=== PATIENT | male | born 1940 | race Caucasian/White ===

== ENCOUNTER 2016-05-11 11:25 | Emergency (ER) | payer MEDICARE, BC ==
[~2016-05-11] VITALS: Ht 177.8 cm; Wt 77.3 kg
[~2016-05-11 11:25] MED LIST: CETI-115 PO; CHLO4TAB32 PO; CHOL200047 PO; FISH1CAP2 PO; METO100T5 PO; OMEP40CA52 PO; RIVA20TA PO
[2016-05-11 11:28] VITALS: TEMP 97.7; Ht 177.8 cm; Wt 77.3 kg
--- OUTSIDE RECORDS SUMMARY | 2016-05-11 11:29 | XMS REPORT | Continuity of Care Document ---
Author Author [facility] Organization [facility] Address Unknown Phone Unavailable Support Name Relationship Address Phone KIMBERLY MCCANN DO Caregiver [facility] [address] [place], [place] [id number] JESSICA HACKETT MD Caregiver [address] [place] [address] PJ HUDSON Next Of Kin [address], [place] [address] Insurance Providers Payer Name Policy Number Subscriber Name Relationship Medicare [id number] Sang Hudson Self Blue Cross Select Plan 65 [id number] Sang Hudson 16 Self Problems Medical Problems Problem Onset Date Status Atrial fibrillation Unknown Active Atrial fibrillation Unknown Active Gastroenteritis Unknown Active Gastroenteritis Unknown Active Medications Medication Dose Route Sig Days/Qty Instructions Order Date Discontinued Date Status [Vitamin D] PO 1 WEEKLY 10/16/08 Active Aspirin 81 Mg PO DAILY 06/18/10 Active Calcium Citrate/Vitamin D3 1 Tab PO DAILY 06/18/10 Active Metoprolol Tartrate 25 Mg PO DAILY 90 Days 01/07/14 Active Alprazolam 0.25 Mg PO PRN ANXIETY 04/24/14 Active Omeprazole 1 Cap PO TWICE A DAY 04/24/14 Active Ondansetron 4 Mg PO EVERY 4-6 HOURS For NAUSEA &/OR VOMITING 15 Qty Oral Disintegrating Tablet 04/24/14 Active Social History Social History Problem Response Recorded Date/Time Hx Substance Use No 04/24/2014 4:40pm Hx Alcohol Use No 04/24/2014 4:40pm Tobacco Usage none 01/11/2014 7:38am Query Response Start Date Stop Date Smoking Status Former smoker Hospital Discharge Instructions No hospital discharge instructions. Plan of Care No plan of care. Functional Status Query Response Date Recorded Physical Hygiene Self April 24, 2014 4:40pm Disabilities None April 24, 2014 4:40pm Devices Used None April 24, 2014 4:40pm Dressing Self April 24, 2014 4:40pm Ambulation Self April 24, 2014 4:40pm Diet Self April 24, 2014 4:40pm Mental Status Alert Occasionally Confused Oriented April 24, 2014 4:40pm Disabilities None April 24, 2014 4:40pm Devices Used None April 24, 2014 4:40pm Physical Hygiene Self April 24, 2014 4:40pm Dressing Self April 24, 2014 4:40pm Ambulation Self April 24, 2014 4:40pm Diet Self April 24, 2014 4:40pm Allergies, Adverse Reactions, Alerts Allergen Type Severity Reaction Status Last Updated Cephalexin Monohydrate Allergy Mild RASH Active 01/07/14 Immunizations Name Given Type Hx Influenza Vaccination Y NOV 2009 Historical Hx Pneumococcal Vaccination Y NOV 2007 Historical Hx Influenza Vaccination Y NOV 2009 Historical Vital Signs Acute Vital Signs Vital Response Date/Time Temperature (Fahrenheit) 100.9 deg F (96.8 - 99.1) Temperature (Calculated Celsius) 38.78808 degrees C (36.0 - 37.3) Pulse Rate (adult) 90 bpm (60 - 100) Respiratory Rate 20 breaths/min (10 - 20) O2 Sat by Pulse Oximetry 95 % (90 - 100) Blood Pressure 143/66 mm Hg Height 5 ft 11 in Weight 159 lb Body Mass Index 22.0 kg/m^2 Results Test Source Date Result Interp. Ref. Range Comments Activated Partial Thromboplast Time January 07, 2014 10:54am 29.9 SEC N 24-36 Alanine Aminotransferase (ALT/SGPT) April 24, 2014 5:06pm 31 U/L N 21- 72 Albumin April 24, 2014 5:06pm 3.4 G/DL L 3.5-5.0 Albumin/Globulin Ratio April 24, 2014 5:06pm 1.2 RATIO N 1.1-2.2 Alkaline Phosphatase April 24, 2014 5:06pm 56 U/L N 38-126 Amylase Level April 24, 2014 5:06pm 93 U/L N 30-110 Anion Gap April 24, 2014 5:06pm 12 MEQ/L N 5-15 Aspartate Amino Transf (AST/SGOT) April 24, 2014 5:06pm 12 U/L L 17-59 BUN/Creatinine Ratio April 24, 2014 5:06pm 22 RATIO N 6-26 Band Neutrophils # April 24, 2014 5:06pm 0.2 T/MM3 - Band Neutrophils % April 24, 2014 5:06pm 3.0 % N 0-6 Basophils # (Auto) January 07, 2014 10:54am 0.1 T/MM3 N 0-0.2 Basophils # (Manual) April 24, 2014 5:06pm 0.0 T/MM3 N 0-0.2 Basophils % (Manual) April 24, 2014 5:06pm 0.0 % N 0-2 Basophils (%) (Auto) January 07, 2014 10:54am 1.3 % N 0-2 Blood Urea Nitrogen April 24, 2014 5:06pm 22.0 MG/DL H 9-20 Calcium Level April 24, 2014 5:06pm 8.6 MG/DL N 8.4-10.2 Calculated Osmolality April 24, 2014 5:06pm 271 MOSM/KG N 261-280 Carbon Dioxide Level April 24, 2014 5:06pm 28 MEQ/L N 22-30 Chemistry Specimen Hemolysis April 24, 2014 5:06pm < 15 0-25 0-25: No Hemolysis.26-70: Slight Hemolysis - can falsely elevate K and Urine Protein. 71-285: Moderate Hemolysis - can falsely elevate K, Troponin I, CA 19-9, PTH, CSF GLucose, and Urine Protein, and can falsely decrease Phenytoin. 286-999: Gross Hemolysis - can falsely elevate K, Troponin I, CA 19-9, PTH, CSF Glucose, and Urine Protine, and can falsely decrease Phenytoin. Recommend specimen recollection. Chloride Level April 24, 2014 5:06pm 98 MEQ/L N 98-107 Creatinine April 24, 2014 5:06pm 1.0 MG/DL N 0.8-1.5 Eosinophils # (Auto) January 07, 2014 10:54am 0.2 T/MM3 N 0-0.5 Eosinophils # (Manual) April 24, 2014 5:06pm 0.0 T/MM3 N 0-0.5 Eosinophils % (Manual) April 24, 2014 5:06pm 0.0 % N 0-4 Eosinophils (%) (Auto) January 07, 2014 10:54am 3.9 % N 0-4 Erythrocyte Sedimentation Rate June 18, 2010 7:30pm 8 MM/HR N 0-15 Globulin April 24, 2014 5:06pm 2.8 G/DL N 2.4-3.6 Glomerular Filtration Rate Calc April 24, 2014 5:06pm 73 - Glucose Level April 24, 2014 5:06pm 129 MG/DL H 75-110 Hematocrit April 24, 2014 5:06pm 40.1 % L 41-53 Hemoglobin April 24, 2014 5:06pm 13.4 GM/DL L 13.5-17.5 Icterus Index April 24, 2014 5:06pm < 2 0-7 Immature Granulocyte # (Auto) January 07, 2014 10:54am 0.00 T/MM3 N 0.00-0.03 Immature Granulocyte % (Auto) January 07, 2014 10:54am 0.0 % N 0.0-0.5 Influenza Type A Antigen April 24, 2014 5:08pm Negative - Negative for Flu A protein antigen. Assay sensitivity is90%. Influenza Type B Antigen April 24, 2014 5:08pm Negative - Negative for Flu B protein antigen. Assay sensitivity is90%. Lab Scanned Report February 26, 2014 7:27pm LAB TEST FORM REQUEST [id number] - Lipase April 24, 2014 5:06pm 173 U/L N 23-300 Lymphocytes # (Auto) January 07, 2014 10:54am 1.6 T/MM3 N 1-4.8 Lymphocytes # (Manual) April 24, 2014 5:06pm 0.4 T/MM3 L 1-4.8 Lymphocytes % (Manual) April 24, 2014 5:06pm 5.0 % L 23-45 Lymphocytes (%) (Auto) January 07, 2014 10:54am 33.6 % N 23-45 Magnesium Level June 18, 2010 7:30pm 1.9 MG/DL N 1.6-2.3 Mean Corpuscular Hemoglobin April 24, 2014 5:06pm 31.5 UUG N 26-34 Mean Corpuscular Hemoglobin Concent April 24, 2014 5:06pm 33.4 GM/DL N 31-37 Mean Corpuscular Volume April 24, 2014 5:06pm 94.1 UM3 N 80-100 Mean Platelet Volume April 24, 2014 5:06pm 9.8 UM3 N 9.4-12.4 Monocytes # (Auto) January 07, 2014 10:54am 0.4 T/MM3 N 0-0.8 Monocytes # (Manual) April 24, 2014 5:06pm 0.1 T/MM3 N 0-0.8 Monocytes % (Manual) April 24, 2014 5:06pm 1.0 % N 0-9.0 Monocytes (%) (Auto) January 07, 2014 10:54am 9.1 % H 0-9.0 GD-Pul-L-Type Natriuretic Peptide January 07, 2014 10:54am 2430 PG/ML H 0-175 Rule in cut points: <50 years old=450; 50-75 years old=900; >75 years old=1800; When utilizing ProBNP rule-in cut points, adjustment for impaired renal function is typically not required. Neutrophils # (Auto) January 07, 2014 10:54am 2.4 T/MM3 N 1.8-7.7 Neutrophils # (Manual) April 24, 2014 5:06pm 6.6 T/MM3 N 1.8-7.7 Neutrophils % (Manual) April 24, 2014 5:06pm 91.0 % H 33-66 Neutrophils (%) (Auto) January 07, 2014 10:54am 52.1 % N 33-66 Platelet Count April 24, 2014 5:06pm 140 T/MM3 N 130-400 Potassium Level April 24, 2014 5:06pm 3.5 MEQ/L L 3.6-5 Prothromb Time International Ratio January 07, 2014 10:54am 1.08 N 0.81 -1.09 THERAPUTIC RANGE=2.00-3.00 FOR ANTI-THROMBOSIS THERAPUTIC RANGE=2.50- 3.50 FOR IMPLANTED VALVE RDW Standard Deviation April 24, 2014 5:06pm 44.0 FL N 36.9-50.2 Red Blood Count April 24, 2014 5:06pm 4.26 M/MM3 L 4.50-5.90 Red Cell Morphology Comment April 24, 2014 5:06pm Normal - Sodium Level April 24, 2014 5:06pm 138 MEQ/L N 134-144 Thyroid Stimulating Hormone (TSH) June 18, 2010 7:30pm 1.55 MIU/L N 0.47- 4.68 Total Bilirubin April 24, 2014 5:06pm 1.30 MG/DL N 0.20-1.30 Total Protein April 24, 2014 5:06pm 6.2 G/DL L 6.3-8.2 Troponin I February 26, 2014 3:35pm 0.012 ng/ml N 0-0.12 Turbidity April 24, 2014 5:06pm < 20 0-20 Urine Bacteria April 24, 2014 6:01pm Trace H - Has specimen been collected/obtained? Y Urine Bilirubin April 24, 2014 6:01pm Negative - Has specimen been collected/obtained? Y Urine Blood April 24, 2014 6:01pm 2+ H - Has specimen been collected/ obtained? Y Urine Collection Type April 24, 2014 6:01pm Voided-not cc-midstr - Has specimen been collected/obtained? Y Urine Color April 24, 2014 6:01pm Yellow - Has specimen been collected/obtained? Y Urine Glucose (UA) April 24, 2014 6:01pm Negative - Has specimen been collected/obtained? Y Urine Ketones April 24, 2014 6:01pm Negative - Has specimen been collected/obtained? Y Urine Leukocyte Esterase April 24, 2014 6:01pm Negative - Has specimen been collected/obtained? Y Urine Microscopic Not Indicated June 18, 2010 10:45pm Not indicated - Has specimen been collected/obtained? Y Urine Nitrite April 24, 2014 6:01pm Negative - Has specimen been collected/obtained? Y Urine Protein April 24, 2014 6:01pm 2+ H - Has specimen been collected/ obtained? Y Urine RBC April 24, 2014 6:01pm 5-10 /HPF H - Has specimen been collected/obtained? Y Urine Specific [place] April 24, 2014 6:01pm 1.020 - Has specimen been collected/obtained? Y Urine Squamous Epithelial Cells April 24, 2014 6:01pm 0-5 - Has specimen been collected/obtained? Y Urine Turbidity April 24, 2014 6:01pm Clear - Has specimen been collected/obtained? Y Urine Urobilinogen April 24, 2014 6:01pm 0.2 EU/DL - Has specimen been collected/obtained? Y Urine WBC April 24, 2014 6:01pm None seen /HPF - Has specimen been collected/obtained? Y Urine pH April 24, 2014 6:01pm 7.0 - Has specimen been collected/ obtained? Y White Blood Count April 24, 2014 5:06pm 7.2 T/MM3 N 4.5-11.0 Gram Stain Knee, Intraoperative Site-Left October 16, 2008 9:44am Procedures Procedure Status Date Provider(s) ROUTINE VENIPUNCTURE completed 02/26/14 ASSAY OF TROPONIN QUANT completed 02/26/14 Encounters Encounter Location Date/Time Departed Emergency Room [facility] 04/24/14 4:37pm Registered Clinic [facility] 02/26/14 3:25pm Recent Diagnosis
--- OUTSIDE RECORDS SUMMARY | 2016-05-11 11:29 | XMS REPORT | Continuity of Care Document ---
Author Author [facility] Organization [facility] Address Unknown Phone Unavailable Support Name Relationship Address Phone JOSE ROSAS APRN Caregiver [address] [place] [address] Unavailable JESSICA REYNA MD Caregiver [address] [facility] [address] [place] [address] Unavailable LAMAR DALEY Next Of Kin Unknown [phone] Insurance Providers Guarantor Sang Daley Address [address] [place] [address] Email DENIED/NO TO PORTAL Payer [employer] Select Plan 65 Policy Number [id number] Subscriber's Name ThuySang Weiss Relationship 18 Self Group Number [id number] Effective Date 04 Payer Medicare Policy Number [id number] Subscriber's Name ThuySang Isela Relationship 18 Self Effective Date 03 Chief Complaint and Reason for Visit Chief Complaint Cough,Fever,Flu,URI Reason for Visit [id number] Nasal congestion Problems Active Problems Medical Problem Onset Date Status Atrial fibrillation Unknown Acute Atrial fibrillation Unknown Acute Gastroenteritis Unknown Acute Gastroenteritis Unknown Acute Past Problems Medical Problem Onset Date Hypovolemia Unknown Nasal congestion Unknown Nasal drainage Unknown Right wrist pain Unknown Medications Current Home Medications Medication Dose Units Route Directions Days Qty Instructions Start Date Cetirizine Hcl (Zyrtec) 10 Mg Tablet 10 Mg Oral Daily 07/18/15 Chlorpheniramine Maleate 4 Mg Tablet 4 Mg Oral Every 4 Hours as needed for Nasal Congestion 5 Days [address] Richy Ordonez [facility] [address] [phone] Cholecalciferol (Vitamin D3) (Vitamin D3) 2,000 Unit Capsule 2,000 Unit Oral Daily 04/26/14 Metoprolol Tartrate 100 Mg Tablet 100 Mg Oral Twice Daily With Meals 11/30/15 [place]-3 Fatty Acids/Fish Oil (Fish Oil 1,000 Mg Capsule) 1 Each Capsule 2,000 Mg Oral Twice A Day 04/26/14 Omeprazole 40 Mg Capsule. 40 Mg Oral Daily 04/24/14 Rivaroxaban (Xarelto) 20 Mg Tablet 20 Mg Oral Daily 04/26/14 Past Home Medications Medication Directions Ordered Status Metoprolol Tartrate 25 Mg Tablet, 25 Mg Oral Daily 01/07/14 Discontinued Social History Social History Problem Response Recorded Date/Time Onset Date Status Hx Substance Use No 11/30/2015 11:50am Not Applicable Not Applicable Hx Alcohol Use No 11/30/2015 11:50am Not Applicable Not Applicable Has the pt used tobacco in the last 12 months No 04/26/2014 11:25am Not Applicable Not Applicable Tobacco Usage none 01/11/2014 7:38am Not Applicable Not Applicable Hospital Discharge Instructions No hospital discharge instructions. Plan of Care Discharge Date 04/04/16 2:17pm Disposition 01 DISCHARGED HOME, SELF-CARE Condition at Discharge Stable Instructions/Education Provided Upper Respiratory Infection (ED) Allergic Rhinitis (ED) Prescriptions See Medication Section Referrals JESSICA REYNA MD Address: [address] [place] [phone] Additional Instructions/Education Take chlorpheniramine as needed for nasal drainage and congestion. You may continue using your fluticasone Follow with Dr. Reyna's office next week. Functional Status No functional status results. Allergies, Adverse Reactions, Alerts Allergen Type Severity Reaction Status Last Updated Cephalexin Monohydrate Allergy Mild RASH Active 04/04/16 Immunizations Query Response on File Recorded Date/Time Hx Influenza Vaccination Y NOV 2009 04/24/14 4:40pm Hx Pneumococcal Vaccination Y NOV 2007 04/24/14 4:40pm Hx Influenza Vaccination Y NOV 2009 04/24/14 4:40pm DTaP Vaccine History YES 04/04/16 1:52pm Influenza Vaccine Hx NO 04/04/16 1:52pm Tetanus Diptheria Vaccine History YES 04/04/16 1:52pm Tdap Vaccine Hx NOT SURE 11/30/15 11:50am Vital Signs Acute Vital Signs Vital Response Date/Time Temperature (Fahrenheit) 99.3 deg F (96.8 - 99.1) 04/04/2016 1:50pm Temperature (Calculated Celsius) 37.72781 degrees C (36.0 - 37.3) 04/04/2016 1:50pm Pulse Rate (adult) 81 bpm (60 - 100) 04/04/2016 1:50pm O2 Sat by Pulse Oximetry 94 % (90 - 100) 04/04/2016 1:50pm Blood Pressure 117/64 mm Hg 04/04/2016 1:50pm Height (Inches) 68.00 inches 04/04/2016 1:50pm Weight (Kilograms) 77.400 kg 04/04/2016 1:50pm Body Mass Index (BMI) 25.0 04/04/2016 1:50pm Results Laboratory Results Test Name Result Units Flags Reference Collection Date/Time Result Date/ Time Comments Influenza Type A Antigen NEGATIVE NEGATIVE 04/04/2016 1:49pm 2016 2:05pm Negative for Flu A protein antigen. Assay sensitivity is 90%. Influenza Type B Antigen NEGATIVE NEGATIVE 04/04/2016 1:49pm 2016 2:05pm Negative for Flu B protein antigen. Assay sensitivity is 90%. Procedures No known history of procedures. Encounters Encounter Location Arrival/Admit Date Discharge/Depart Date Attending Provider Departed Emergency Room [facility] 04/04/16 1:28pm 04/04/16 2: 17pm JOSE ROSAS APRN Recent Diagnosis
--- OUTSIDE RECORDS SUMMARY | 2016-05-11 11:29 | XMS REPORT | Continuity of Care Document ---
Author Author [facility] Organization [facility] Address Unknown Phone Unavailable Support Name Relationship Address Phone JESSICA REYNA MD Caregiver [address] [place] [phone] PJ DALEY Next Of Kin [address] [place] [address] Insurance Providers Payer Name Policy Number Subscriber Name Relationship Medicare [id number] Sang Daley 18 Self Blue Cross Select Plan 65 [id number] Sang Daley 18 Self Advance Directives Directive Response Recorded Date/Time Dr Ordered Resuscitation Status Full Code 04/26/14 2:21pm Resuscitation Documents on File Yes 04/26/14 11:40am Problems Medical Problems Problem Onset Date Status Atrial fibrillation Unknown Active Atrial fibrillation Unknown Active Gastroenteritis Unknown Active Gastroenteritis Unknown Active Medications Medication Dose Route Sig Days/Qty Instructions Order Date Discontinued Date Status Metoprolol Tartrate 25 Mg PO DAILY 90 Days 01/07/14 04/26/14 Discontinued Omeprazole 1 Cap PO DAILY 04/24/14 Active Metoprolol Tartrate 50 Mg PO TWICE DAILY WITH MEALS Take 1 tablet, by mouth, 2 times a day with meals. 04/26/14 Active [place]-3 Fatty Acids/Fish Oil 2,000 Mg PO TWICE A DAY 04/26/14 Active Loratadine 10 Mg PO BEFORE BREAKFAST 04/26/14 Active Cholecalciferol (Vitamin D3) 1 Cap PO DAILY 04/26/14 Active Rivaroxaban 20 Mg PO DAILY Take 1 tablet, by mouth, daily with evening meal. 04/26/14 Active Social History Social History Problem Response Recorded Date/Time Chewing Tobacco Status No 04/26/2014 11:25am Hx Substance Use No 04/24/2014 4:40pm Hx Alcohol Use No 04/24/2014 4:40pm Has the pt used tobacco in the last 12 months No 04/26/2014 11:25am Tobacco Usage none 01/11/2014 7:38am Query Response Start Date Stop Date Smoking Status Former smoker Hospital Discharge Instructions No hospital discharge instructions. Plan of Care No plan of care. Functional Status Query Response Date Recorded Physical Hygiene Self April 24, 2014 4:40pm Physical Hygiene Self April 24, 2014 4:40pm Allergies, Adverse Reactions, Alerts Allergen Type Severity Reaction Status Last Updated Cephalexin Monohydrate Allergy Mild RASH Active 01/07/14 Immunizations Name Given Type Hx Influenza Vaccination Y NOV 2009 Historical Hx Pneumococcal Vaccination Y NOV 2007 Historical Hx Influenza Vaccination Y NOV 2009 Historical Vital Signs Acute Vital Signs Vital Response Date/Time Temperature (Fahrenheit) 98.3 deg F (96.8 - 99.1) Temperature (Calculated Celsius) 36.04126 degrees C (36.0 - 37.3) Temperature Source Temporal Pulse Rate (adult) 66 bpm (60 - 100) Respiratory Rate 16 breaths/min (10 - 20) O2 Sat by Pulse Oximetry 96 % (90 - 100) Oxygen Delivery Method Room Air Blood Pressure 152/65 mm Hg Blood Pressure Source Automatic Cuff Height 5 ft 9 in Weight 159 lb Body Mass Index 23.0 kg/m^2 Results Test Source Date Result Interp. [...] 26, 2014 7:27pm LAB TEST FORM REQUEST [id number] - Lipase April 24, 2014 5:06pm 173 [...] 07, 2014 10:54am 9.1 % H 0-9.0 QQ-Pnw-P-Type Natriuretic Peptide January 07, 2014 10:54am 2430 [...] Has specimen been collected/obtained? Y Urine Specific [place] April 24, 2014 6:01pm 1.020 - Has [...] Knee, Intraoperative Site-Left October 16, 2008 9:44am Name: SANG DALEY Unit #: [id number] : 1940 Sex: M Loc / Svc: ED DOS: 04/24/14 Signed Report #: [id number] DIAGNOSTIC IMAGING REPORT TYPE OF EXAM: CHEST, PA & LATERAL Dictated By: MARCUS REYNA MD INDICATION: ITS.REASON: cough and vomiting CHEST 2-VIEWS UPRIGHT (PA & LAT) COMPARISON: January 07, 2014 Findings: The lungs are stable in appearance without new focal airspace consolidation. There is no pleural effusion or pneumothorax. The heart size, pulmonary vascularity and mediastinal contours are unchanged. IMPRESSION: Stable appearance of the chest without acute cardiopulmonary disease. . Procedures Procedure Status Date Provider(s) ROUTINE VENIPUNCTURE completed 02/26/14 ASSAY OF TROPONIN QUANT completed 02/26/14 ROUTINE VENIPUNCTURE completed 04/24/14 CHEST X-RAY 2VW FRONTAL&LATL completed 04/24/14 X-RAY EXAM OF ABDOMEN completed 04/24/14 COMPREHEN METABOLIC PANEL completed 04/24/14 URINALYSIS AUTO W/SCOPE completed 04/24/14 ASSAY OF AMYLASE completed 04/24/14 ASSAY OF LIPASE completed 04/24/14 BL SMEAR W/DIFF WBC COUNT completed 04/24/14 COMPLETE CBC AUTOMATED completed 04/24/14 INFLUENZA A/B AG EIA completed 04/24/14 HYDRATE IV INFUSION ADD-ON completed 04/24/14 HYDRATE IV INFUSION ADD-ON completed 04/24/14 THER/PROPH/DIAG INJ IV PUSH completed 04/24/14 EMERGENCY DEPT VISIT completed 04/24/14 [id number]"INJECTION, ONDANSETRON HYDROCHLORIDE, PER 1 MG" completed 04/24/14 [id number]"INFUSION, NORMAL SALINE SOLUTION , 1000 CC" completed 04/24/14 Colonoscopy with polypectomy and biopsy completed 04/27/14 JESSICA REYNA MD Encounters Encounter Location Date/Time Departed Emergency Room [facility] 04/24/14 4:37pm Registered Clinic [facility] 02/26/14 3:25pm
--- OUTSIDE RECORDS SUMMARY | 2016-05-11 11:29 | XMS REPORT | Continuity of Care Document ---
Author Author [facility] Organization [facility] Address Unknown Phone Unavailable Support Name Relationship Address Phone JESSICA HACKETT MD Caregiver [address] [place] [phone] JOSH BENTLEY MD Caregiver [address] [place] [address] [place] [phone] PJ DALEY Next Of Kin [address] [place] [address] Insurance Providers Payer Name Policy Number Subscriber Name Relationship Medicare [id number] Sang Daley 16 Self [facility] [id number] Sang Daley 16 Self Advance Directives Directive Response Recorded Date/Time Advanced Directives Type None 01/07/14 10:43am Problems Medical Problems Problem Onset Date Status Atrial fibrillation Unknown Active Medications Medication Dose Route Sig Days/Qty Instructions Order Date Discontinued Date Status [Vitamin D] PO 1 WEEKLY 10/16/08 Active Aspirin 81 Mg PO DAILY 06/18/10 Active Calcium Citrate/Vitamin D3 1 Tab PO DAILY 06/18/10 Active Metoprolol Tartrate 25 Mg PO DAILY 90 Days 01/07/14 Active Social History Social History Problem Response Recorded Date/Time Smoking Status Former smoker 01/07/2014 11:13am Hx Substance Use No 01/07/2014 11:13am Hx Alcohol Use Y seldom 01/07/2014 11:13am Hospital Discharge Instructions No hospital discharge instructions. Plan of Care No plan of care. Functional Status Query Response Date Recorded Physical Hygiene Self January 07, 2014 11:13am Disabilities None January 07, 2014 11:13am Devices Used None January 07, 2014 11:13am Dressing Self January 07, 2014 11:13am Ambulation Self January 07, 2014 11:13am Diet Self January 07, 2014 11:13am Mental Status Alert January 07, 2014 12:10pm Disabilities None January 07, 2014 11:13am Devices Used None January 07, 2014 11:13am Physical Hygiene Self January 07, 2014 11:13am Dressing Self January 07, 2014 11:13am Ambulation Self January 07, 2014 11:13am Diet Self January 07, 2014 11:13am Allergies, Adverse Reactions, Alerts Allergen Type Severity Reaction Status Last Updated Cephalexin Monohydrate Allergy Mild RASH Active 01/07/14 Immunizations Name Given Type Hx Influenza Vaccination Y NOV 2009 Historical Hx Pneumococcal Vaccination Y NOV 2007 Historical Hx Influenza Vaccination Y NOV 2009 Historical Vital Signs Acute Vital Signs Vital Response Date/Time Temperature (Fahrenheit) 97.8 deg F (96.8 - 99.1) Temperature (Calculated Celsius) 36.21643 degrees C (36.0 - 37.3) Pulse Rate (adult) 64 bpm (60 - 100) Respiratory Rate 16 breaths/min (10 - 20) O2 Sat by Pulse Oximetry 97 % (90 - 100) Blood Pressure 156/81 mm Hg Height 5 ft 11 in Weight 161 lb Body Mass Index 22.0 kg/m^2 Results Test Source Date Result Interp. Ref. Range Comments Activated Partial Thromboplast Time January 07, 2014 10:54am 29.9 SEC N 24-36 Alanine Aminotransferase (ALT/SGPT) January 07, 2014 10:54am 31 U/L N 21-72 Albumin January 07, 2014 10:54am 3.8 G/DL N 3.5-5.0 Albumin/Globulin Ratio January 07, 2014 10:54am 1.3 RATIO N 1.1-2.2 Alkaline Phosphatase January 07, 2014 10:54am 63 U/L N 38-126 Anion Gap January 07, 2014 10:54am 8 MEQ/L N 5-15 Aspartate Amino Transf (AST/SGOT) January 07, 2014 10:54am 14 U/L L 17- 59 BUN/Creatinine Ratio January 07, 2014 10:54am 20 RATIO N 6-26 Band Neutrophils # October 19, 2008 4:35am 0.1 T/MM3 - Band Neutrophils % October 19, 2008 4:35am 1.0 % N 0-6 Basophils # (Auto) January 07, 2014 10:54am 0.1 T/MM3 N 0-0.2 Basophils (%) (Auto) January 07, 2014 10:54am 1.3 % N 0-2 Blood Urea Nitrogen January 07, 2014 10:54am 22.0 MG/DL H 9-20 Calcium Level January 07, 2014 10:54am 9.9 MG/DL N 8.4-10.2 Calculated Osmolality January 07, 2014 10:54am 272 MOSM/KG N 261-280 Carbon Dioxide Level January 07, 2014 10:54am 32 MEQ/L H 22-30 Chloride Level January 07, 2014 10:54am 100 MEQ/L N 98-107 Creatinine January 07, 2014 10:54am 1.1 MG/DL N 0.8-1.5 Eosinophils # (Auto) January 07, 2014 10:54am 0.2 T/MM3 N 0-0.5 Eosinophils # (Manual) October 19, 2008 4:35am 0.2 T/MM3 N 0-0.5 Eosinophils % (Manual) October 19, 2008 4:35am 2.0 % N 0-4 Eosinophils (%) (Auto) January 07, 2014 10:54am 3.9 % N 0-4 Erythrocyte Sedimentation Rate June 18, 2010 7:30pm 8 MM/HR N 0-15 Globulin January 07, 2014 10:54am 3.0 G/DL N 2.4-3.6 Glucose Level January 07, 2014 10:54am 92 MG/DL N 75-110 Hematocrit January 07, 2014 10:54am 43.5 % N 41-53 Hemoglobin January 07, 2014 10:54am 14.3 GM/DL N 13.5-17.5 Lymphocytes # (Auto) January 07, 2014 10:54am 1.6 T/MM3 N 1-4.8 Lymphocytes # (Manual) October 19, 2008 4:35am 1.6 T/MM3 N 1-4.8 Lymphocytes % (Manual) October 19, 2008 4:35am 19.0 % L 23-45 Lymphocytes (%) (Auto) January 07, 2014 10:54am 33.6 % N 23-45 Magnesium Level June 18, 2010 7:30pm 1.9 MG/DL N 1.6-2.3 Mean Corpuscular Hemoglobin January 07, 2014 10:54am 31.3 UUG N 26-34 Mean Corpuscular Hemoglobin Concent January 07, 2014 10:54am 32.9 GM/DL N 31-37 Mean Corpuscular Volume January 07, 2014 10:54am 95.2 UM3 N 80-100 Mean Platelet Volume January 07, 2014 10:54am 10.0 UM3 N 9.4-12.4 Monocytes # (Auto) January 07, 2014 10:54am 0.4 T/MM3 N 0-0.8 Monocytes # (Manual) October 19, 2008 4:35am 0.8 T/MM3 N 0-0.8 Monocytes % (Manual) October 19, 2008 4:35am 9.0 % N 0-9.0 Monocytes (%) (Auto) January 07, 2014 10:54am 9.1 % H 0-9.0 Neutrophils # (Auto) January 07, 2014 10:54am 2.4 T/MM3 N 1.8-7.7 Neutrophils # (Manual) October 19, 2008 4:35am 5.8 T/MM3 N 1.8-7.7 Neutrophils % (Manual) October 19, 2008 4:35am 69.0 % H 33-66 Neutrophils (%) (Auto) January 07, 2014 10:54am 52.1 % N 33-66 Platelet Count January 07, 2014 10:54am 157 T/MM3 N 130-400 Potassium Level January 07, 2014 10:54am 3.7 MEQ/L N 3.6-5 Prothromb Time International Ratio January 07, 2014 10:54am 1.08 N 0.81 -1.09 THERAPUTIC RANGE=2.00-3.00 FOR ANTI-THROMBOSIS THERAPUTIC RANGE=2.50- 3.50 FOR IMPLANTED VALVE RDW Standard Deviation January 07, 2014 10:54am 44.6 FL N 36.9-50.2 Red Blood Count January 07, 2014 10:54am 4.57 M/MM3 N 4.50-5.90 Sodium Level January 07, 2014 10:54am 140 MEQ/L N 134-144 Thyroid Stimulating Hormone (TSH) June 18, 2010 7:30pm 1.55 MIU/L N 0.47- 4.68 Total Bilirubin January 07, 2014 10:54am 1.00 MG/DL N 0.20-1.30 Total Protein January 07, 2014 10:54am 6.8 G/DL N 6.3-8.2 Troponin I January 07, 2014 10:54am 0.027 ng/ml N 0-0.12 Urine Bilirubin June 18, 2010 10:45pm Negative - Has specimen been collected/obtained? Y Urine Blood June 18, 2010 10:45pm Negative - Has specimen been collected/obtained? Y Urine Collection Type June 18, 2010 10:45pm Voided - Has specimen been collected/obtained? Y Urine Color June 18, 2010 10:45pm Yellow - Has specimen been collected /obtained? Y Urine Glucose (UA) June 18, 2010 10:45pm Negative - Has specimen been collected/obtained? Y Urine Ketones June 18, 2010 10:45pm Negative - Has specimen been collected/obtained? Y Urine Leukocyte Esterase June 18, 2010 10:45pm Negative - Has specimen been collected/obtained? Y Urine Nitrite June 18, 2010 10:45pm Negative - Has specimen been collected/obtained? Y Urine Protein June 18, 2010 10:45pm Negative - Has specimen been collected/obtained? Y Urine RBC October 16, 2008 6:30am 3-5 /HPF - COMMENT CULTURE IF INDICATEDHas specimen been collected/obtained? Y Urine Specific [place] June 18, 2010 10:45pm 1.015 - Has specimen been collected/obtained? Y Urine Squamous Epithelial Cells October 16, 2008 6:30am Few - COMMENT CULTURE IF INDICATEDHas specimen been collected/obtained? Y Urine Turbidity June 18, 2010 10:45pm Clear - Has specimen been collected/obtained? Y Urine Urobilinogen June 18, 2010 10:45pm Normal EU/DL - Has specimen been collected/obtained? Y Urine WBC October 16, 2008 6:30am 0-1 /HPF - COMMENT CULTURE IF INDICATEDHas specimen been collected/obtained? Y Urine pH June 18, 2010 10:45pm 6.0 - Has specimen been collected/ obtained? Y White Blood Count January 07, 2014 10:54am 4.6 T/MM3 N 4.5-11.0 Chemistry Specimen Hemolysis January 07, 2014 10:54am < 15 0-25 0-25 : No Hemolysis.26-70: Slight Hemolysis - can falsely elevate K and Urine Protein. 71-285: Moderate Hemolysis - can falsely elevate K, Troponin I, CA 19-9, PTH, CSF GLucose, and Urine Protein, and can falsely decrease Phenytoin. 286-999: Gross Hemolysis - can falsely elevate K, Troponin I, CA 19-9, PTH, CSF Glucose, and Urine Protine, and can falsely decrease Phenytoin. Recommend specimen recollection. Lab Scanned Report November 01, 2008 4:33pm LAB TEST FORM REQUEST [id number] - Turbidity January 07, 2014 10:54am < 20 0-20 Glomerular Filtration Rate Calc January 07, 2014 10:54am 65 - Immature Granulocyte # (Auto) January 07, 2014 10:54am 0.00 T/MM3 N 0.00-0.03 Immature Granulocyte % (Auto) January 07, 2014 10:54am 0.0 % N 0.0-0.5 Icterus Index January 07, 2014 10:54am < 2 0-7 LT-Kgy-L-Type Natriuretic Peptide January 07, 2014 10:54am 2430 PG/ML H 0-175 Rule in cut points: <50 years old=450; 50-75 years old=900; >75 years old=1800; When utilizing ProBNP rule-in cut points, adjustment for impaired renal function is typically not required. Urine Microscopic Not Indicated June 18, 2010 10:45pm Not indicated - Has specimen been collected/obtained? Y Gram Stain Knee, Intraoperative Site-Left October 16, 2008 9:44am Procedures No known history of procedures. Encounters Encounter Location Date/Time Departed Emergency Room [facility] 01/07/14 10:41am Recent Diagnosis
[2016-05-11] MEDS ORDERED: CALC-1138 PO (11:43)
[2016-05-11] MEDS ORDERED: LISI10TA7 PO (11:46)
[2016-05-11] MEDS ORDERED: CHOL100018 PO (11:46)
[2016-05-11] MEDS ORDERED: ACET-2890 PO (11:46)
--- OUTSIDE RECORDS SUMMARY | 2016-05-11 12:09 | XMS REPORT | Continuity of Care Document ---
Author Author [facility] Organization [facility] Address Unknown Phone Unavailable Support Name Relationship Address Phone KIMBERLY MCCANN DO Caregiver [facility] [address] [place], [place] [id number] JESSICA HACKETT MD Caregiver [address] [place] [address] PJ HUDSON Next Of Kin [address], [place] [address] Insurance Providers Payer Name Policy Number Subscriber Name Relationship Medicare [id number] Sang Hudson Self [employer] Select Plan 65 [id number] Sang Hudson 16 Self Problems Medical Problems [...] F (96.8 - 99.1) Temperature (Calculated Celsius) 38.04708 degrees C (36.0 - 37.3) Pulse Rate [...] 26, 2014 7:27pm LAB TEST FORM REQUEST [id number] - Lipase April 24, 2014 5:06pm 173 [...] 07, 2014 10:54am 9.1 % H 0-9.0 OR-Xns-Y-Type Natriuretic Peptide January 07, 2014 10:54am 2430 [...] Has specimen been collected/obtained? Y Urine Specific [place] April 24, 2014 6:01pm 1.020 - Has [...] Encounters Encounter Location Date/Time Departed Emergency Room [facility] 04/24/14 4:37pm Registered Clinic [facility] 02/26/14 3:25pm Recent Diagnosis
--- OUTSIDE RECORDS SUMMARY | 2016-05-11 12:10 | XMS REPORT | Continuity of Care Document ---
Author Author [facility] Organization [facility] Address Unknown Phone Unavailable Support Name Relationship Address Phone JESSICA HACKETT MD Caregiver [address] [place] [phone] JOSH BENTLEY MD Caregiver [address] [place] [address] [place] [phone] PJ DALEY Next Of Kin [address] [place] [address] Insurance Providers Payer Name Policy Number Subscriber Name Relationship Medicare [id number] Sang Daley 16 Self [facility] [id number] Sang Daley 16 Self Advance Directives Directive [...] F (96.8 - 99.1) Temperature (Calculated Celsius) 36.32039 degrees C (36.0 - 37.3) Pulse Rate [...] INDICATEDHas specimen been collected/obtained? Y Urine Specific [place] June 18, 2010 10:45pm 1.015 - Has [...] 01, 2008 4:33pm LAB TEST FORM REQUEST [id number] - Turbidity January 07, 2014 10:54am < 20 0-20 Glomerular Filtration Rate Calc January 07, 2014 10:54am 65 - Immature Granulocyte # (Auto) January 07, 2014 10:54am 0.00 T/MM3 N 0.00-0.03 Immature Granulocyte % (Auto) January 07, 2014 10:54am 0.0 % N 0.0-0.5 Icterus Index January 07, 2014 10:54am < 2 0-7 UO-Plo-U-Type Natriuretic Peptide January 07, 2014 10:54am 2430 [...] Encounters Encounter Location Date/Time Departed Emergency Room [facility] 01/07/14 10:41am Recent Diagnosis
--- OUTSIDE RECORDS SUMMARY | 2016-05-11 12:10 | XMS REPORT | Continuity of Care Document ---
Author Author [facility] Organization [facility] Address Unknown Phone Unavailable Support Name Relationship Address Phone JESSICA REYNA MD Caregiver [address] [place] [phone] PJ DALEY Next Of Kin [address] [place] [address] Insurance Providers Payer Name Policy Number Subscriber Name Relationship Medicare [id number] Sang Daley 16 Self [employer] Select Plan 65 [id number] Sang Daley 16 Self Advance Directives Directive [...] times a day with meals. 04/26/14 Active Galion-3 Fatty Acids/Fish Oil 2,000 Mg PO TWICE [...] F (96.8 - 99.1) Temperature (Calculated Celsius) 36.40352 degrees C (36.0 - 37.3) Temperature Source [...] 26, 2014 7:27pm LAB TEST FORM REQUEST [id number] - Lipase April 24, 2014 5:06pm 173 [...] 07, 2014 10:54am 9.1 % H 0-9.0 XT-Nnx-A-Type Natriuretic Peptide January 07, 2014 10:54am 2430 [...] Has specimen been collected/obtained? Y Urine Specific [place] April 24, 2014 6:01pm 1.020 - Has [...] 2008 9:44am Name: SANG DALEY Unit #: [id number] : 1940 Sex: M Loc / Svc: ED DOS: 04/24/14 Signed Report #: [id number] DIAGNOSTIC IMAGING REPORT TYPE OF EXAM: CHEST, [...] completed 04/24/14 EMERGENCY DEPT VISIT completed 04/24/14 [id number]"INJECTION, ONDANSETRON HYDROCHLORIDE, PER 1 MG" completed 04/24/14 [id number]"INFUSION, NORMAL SALINE SOLUTION , 1000 CC" completed 04/24/14 Colonoscopy with polypectomy and biopsy completed 04/27/14 JESSICA REYNA MD Encounters Encounter Location Date/Time Departed Emergency Room [facility] 04/24/14 4:37pm Registered Clinic [facility] 02/26/14 3:25pm
--- NOTE | 2016-05-11 12:24 | ERPDOC ---
Departure Disposition Decision Date: May 11, 2016 Disposition Decision Time: 12:27 (CHANCE OLSON APRN) Disposition: 01 DISCHARGED HOME, SELF-CARE Impression Impression (CHANCE OLSON APRN) Impression: Primary Impression: Muscle spasm Severity: Moderate (CHANCE OLSON APRN) Condition: Stable Seen By: Mid-level only (HCANCE OLSON APRN) Referrals: JESSICA HACKETT MD (Family) Patient Instructions: Muscle Spasm (ED) Problems/Meds/Labs Reviewed?: Yes Medications reviewed and manag: Yes (CHANCE OLSON APRN) Additional Instructions: Take the Horatio as needed for severe pain. Use the cyclobenzaprine as needed for muscle spasms. These may make you sleepy so do not use heavy machinery or drive while using these. I do also encourage you to use warm compresses, massage, and/ or some icy hot in the region of your pain. If this is not improving then follow up with your primary care provider. Follow up care ordered?: Yes Mental Status: Alert (CHANCE OLSON APRN) Scripts Hydrocodone/Acetaminophen (Horatio 5-325 Tablet) 5-325 Tablet 1 TAB PO Q6H Y for PAIN, #12 TAB 0 Refills Prov: CHANCE OLSON APRN 05/11/16 Cyclobenzaprine HCl (Cyclobenzaprine HCl) 10 Mg Tablet 1 TAB PO TID, #15 TAB 0 Refills Prov: CHANCE OLSON APRN 05/11/16 HPI - Upper Extremity General Chief Complaint: Neck Pain Stated Complaint: NECK/SHOULDER PAIN Time Seen by MD: 12:03 Source: patient Exam Limitations: no limitations (CHANCE OLSON APRN) Time Seen by MD: 12:03 (SUSAN BARTHOLOMEW MD) HPI - Upper Extremity Initial Comments 5 days ago he had taken a bath and was using his arms to lift himself up out of the bathtub. He felt a pulling and spasming in the right periscapular region and the right neck. Since then has had pain in this region. He did feel like it was improving some yesterday but today it continues to hurt. Has never had pain like this in the past. He has taken a few doses of Tylenol at home but it has not helped. Painful ROM of the head but does have full ROM of the right arm. Denies any fever/chills, nausea/vomiting, or any other symptoms. Occurred At: home Onset/Timing: Gradual Duration: other (Over the last 5 days) Severity: moderate Pain/Injury Location: right shoulder, right other (neck musculature) Method of Injury/Context: unknown Hx of Similar Symptoms: No Quality: cramping, sharpness (NOLD,CHANCE N ONLINE MEDIA DIRECTOR) Allergies: Coded Allergies: Cephalexin Monohydrate (Verified Allergy, Mild, RASH, 05/11/16) Past History Past Medical History Metabolic: hypertension Cardiac: A-fib Respiratory: COPD Male: BPH Musculoskeletal: osteoarthritis (NOLD,CHANCE N ONLINE MEDIA DIRECTOR) Surgical History General: EGD, colonoscopy, hernia (NOLD,CHANCE N ONLINE MEDIA DIRECTOR) Family History Family History: Negative (NOLD,CHANCE N ONLINE MEDIA DIRECTOR) Vaccines Hx Influenza Vaccination: Yes (NOV 2009) Hx Pneumococcal Vaccination: Yes (NOV 2007) (NOLD,CHANCE N ONLINE MEDIA DIRECTOR) Social History Smoking Status: Never smoker Second Hand Exposure: No Substance Use Type: does not use Alcohol Intake: other (NOLD,CHANCE N ONLINE MEDIA DIRECTOR) Review of Systems Constitutional Constitutional: DENIES: appetite decrease, chills, dizziness, fatigue, fever, weakness (NOLD,CHANCE N ONLINE MEDIA DIRECTOR) Eyes Vision: DENIES: blurring, double vision (NOLD,CHANCE N ONLINE MEDIA DIRECTOR) ENMT Ears: DENIES: drainage, pain Sinuses: DENIES: congestion, rhinorrhea Mouth/Throat: DENIES: painful swallowing, scratchy throat, sore throat (NOLD, CHANCE N ONLINE MEDIA DIRECTOR) Cardiovascular Cardiac: DENIES: chest pain, orthopnea Rhythm/Rate: DENIES: irregular beat, palpitations (NOLD,CHANCE N ONLINE MEDIA DIRECTOR) Pulmonary Respiratory: DENIES: cough, dyspnea, sputum, tachypnea (NOLD,CHANCE N ONLINE MEDIA DIRECTOR) GI Upper Abdomen: DENIES: nausea, pain, vomiting Lower Abdomen: DENIES: constipation, diarrhea, pain (NOLD,CHANCE N ONLINE MEDIA DIRECTOR) Musculoskeletal General: pain (right periscapular region and right neck musculature), tenderness (right periscapular region), DENIES: joint pain, joint swelling (NOLD ,CHANCE N ONLINE MEDIA DIRECTOR) Integumentary Skin: DENIES: rash (NOKAVITA,CHANCE N ONLINE MEDIA DIRECTOR) Neurological General: DENIES: headache, numbness, tingling, weakness (NOKAVITA,CHANCE N ONLINE MEDIA DIRECTOR) Physical Exam General General Nourishment: well nourished, well developed, appears stated age, no acute distress, adult General Body Habitus: well groomed (WESLEY,CHANCE N ONLINE MEDIA DIRECTOR) Vitals and Pain First Documented Vital Signs Date Time Temp Pulse Resp B/P Pulse Ox O2 Delivery O2 Flow Rate FiO2 05/11/16 11:28 97.7 67 17 152/73 97 Room Air (SUSAN BARTHOLOMEW MD) Vitals and Pain Weight: Kilograms: 77.300 Height (feet): 5 Height (inches): 10.00 Triage Pain Scale: (CHANCE OLSON N ONLINE MEDIA DIRECTOR) RN VS reviewed by Provider: Yes (CHANCE OLSON ONLINE MEDIA DIRECTOR) Normal Exams: Neck: without adenopathy, JVD, bruits or thyromegaly Chest/Resp: Clear all amor, with good airflow, and symmetry bilaterally CV: Regular rate and rhythm, without murmur or gallop, Pulses 2+ all extremities, capillary refill, <2 seconds all ext., no pedal edema noted Abdomen: Bowel sounds positive, soft, non-tender, non-distended, no hepatosplenomegaly, masses or bruits noted Lymphatic: No lymphadenopathy, or lymphedema noted Integumentary: No rashes, hives, or bruising noted Neurologic: Patient is alert, and oriented, cranial nerves, motor/sensory/ cerebellar, exams w/o gross deficits, to observation Psychiatric: Patient exhibits, appropriate attention, emotion and affect (NOKAVITA,CHANCE N ONLINE MEDIA DIRECTOR) ENMT (brief) ENMT Brief: FOUND: TM clear, TM good light reflex, ear canals clear, mucosa moist, normal dentition, normal tonsils, NOT FOUND: lesions, nasal erythema, nasal exudate, nasal swelling, petechiae, pharnyx erythema, tonsillar deviation (NOLD,CHANCE N ONLINE MEDIA DIRECTOR) Neck (brief) Neck: FOUND: other (He is able to move the head up and down and to the left and right but ROM is limited secondary to pain in all amor. ), tenderness (He does report mild TTP in the right neck muscluture, denies any TTP along the cervical spine), trachea midline, NOT FOUND: adenopathy, nuchal rigidity, thyromegaly (CHANCE OLSON APRN) Musculoskeletal (brief) Musculoskeletal Brief: FOUND: tenderness (Moderate TTP along the right periscapular region along the trapezius, small knot is noted in the region of the pain. This is where he feels pain with ROM of the right arm but does maintain full ROM of the right arm. This is the source of the majority of his pain as well.) (CHANCE OLSON APRN) Differential Diagnoses Considering: Contusion, Fracture, Sprain, Strain, Other (muscle spasm) (CHANCE OLSON APRN) Progress Results/Orders Orders Procedure Category Date Status Time Ketorolac (Toradol) PHA 05/11/16 Complete 12:30 Orphenadrine (Norflex) PHA 05/11/16 Complete 12:30 (SUSAN BARTHOLOMEW MD) Medications Current ED Medications Ketorolac Tromethamine (Toradol) 30 mg O ONCE IM Last administered on 12:41; Start 05/11/16 at 12:30; Stop 05/11/16 at 12:31; Status DC Orphenadrine Citrate (Norflex) 60 mg O ONCE IM Last administered on 05/11/16 12:41; Start 05/11/16 at 12:30; Stop 05/11/16 at 12:31; Status DC (SUSAN BARTHOLOMEW MD) Progress Progress This does sound purely musculoskeletal in nature. I am going to have him get in injection of Norflex and Toradol today. I will send him home with a Rx for Horatio and Cyclobenzaprine and have him monitor for improvement. May use warm compresses, massage, and icy/hot as needed. If not improving then follow up in clinic with PCP. (CHANCE OLSON APRN) Progress Patient's history and exam discussed with FIXTURE DESIGNER. Agree with treatment plan as outlined by FIXTURE DESIGNER. (SUSAN BARTHOLOMEW MD) CHANCE OLSON APRN May 11, 2016 12:24 SUSAN BARTHOLOMEW MD May 11, 2016 14:10
[2016-05-11] MEDS ORDERED: HYDR-4246 PO (12:29)
[2016-05-11] MEDS ORDERED: CYCL-375 PO (12:29)
[2016-05-11] MEDS ORDERED: KETOROLAC 30mg/ml INJECTION IM ONE (12:30)
[2016-05-11] MEDS ORDERED: ORPHENADRINE 60mg/2ml INJECTION IM ONE (12:30)
[2016-05-11 12:55] VITALS: BP 137/65; PULSE 60; RESP 20; O2SAT 97
== END 2016-05-11 12:55 | disposition home or self-care (01) ==
LOC: ED 11:25
DX: M62.838 Other muscle spasm (principal)
CPT/HCPCS: 96372; 99283; J1885; J2360

== ENCOUNTER 2016-10-17 12:44 | Observation (INO) ==
[2016-10-17] MEDS ORDERED: SALINE FLUSH 10ml SYRINGE IVF PRN (13:09)
--- NOTE | 2016-10-17 15:12 | Emergency Department Report ---
Altered Mental Status HPI - General Chief Complaint: Altered Mental Status Stated Complaint: poss stroke symptoms Time Seen by Provider: 10/17/16 12:50 Source: patient, family Mode of arrival: ambulatory Limitations: no limitations - History of Present Illness HPI narrative: This patient with known history of atrial fibrillation presents via POV complaining of an episode of slurred/gargled speech that lasted 5-10 minutes. He and his son went to a fast food restaurant to get lunch and suddenly the patient was unable to speak intelligibly -- it was just "gibberish" per son. He could not understand what the dad wanted to order. So he drove him home and they changed clothes and then came to the hospital. By the time they got here the speech was back to normal. He has not had any episodes like this in the past. He does have atrial fibrillation and is on Xarelto. The patient does note that he started feeling a sense of confusion and dizziness about an hour prior to the episode of aphasia, although the son did not necessarily perceive him to be confused at the time. MD complaint: confusion Timing confirmed by: family member Severity: moderate Associated symptoms: denies other symptoms - Related Data Home Medications Medication Instructions Recorded Confirmed [place]-3 Fatty Acids/Fish Oil [Fish 1,000 mg PO BID #0 04/26/14 10/18/16 Oil 1,000 mg Capsule] Rivaroxaban [Xarelto] 20 mg PO 0800 #0 04/26/14 10/18/16 Cetirizine HCl [Zyrtec] 10 mg PO DAILY #0 07/18/15 10/17/16 Metoprolol Tartrate 100 mg PO BIDWM #0 11/30/15 10/17/16 Acetaminophen [Acetaminophen 8 1,300 mg PO BID PRN #0 05/11/16 10/17/16 Hour] Cholecalciferol [Vit. D-3] 1,000 unit PO DAILY #0 05/11/16 10/17/16 Lisinopril 10 mg PO BID #0 05/11/16 10/17/16 Omeprazole 40 mg PO DAILY 10/17/16 10/17/16 Calcium Citrate with D Tablet 400 mg PO BID 10/18/16 10/18/16 Cholecalciferol (Vitamin D3) 1 tab PO DAILY 10/18/16 10/18/16 [Vitamin D3] Previous Rx's Medication Instructions Recorded Aspirin *EC* [Ecotrin] 81 mg PO DAILY tablet 10/18/16 Atorvastatin [Lipitor] 10 mg PO HS #30 tab 10/18/16 Allergies Allergy/AdvReac Type Severity Reaction Status Date / Time cephalexin [From Keflex] Allergy Intermediate Verified 10/17/16 13:26 Review of Systems Constitutional: Denies: fever, chills, weakness Eyes: Denies: eye pain, eye discharge ENT: Denies: ear pain, throat pain, congestion Cardiovascular: Denies: chest pain, palpitations Respiratory: Denies: cough, dyspnea Gastrointestinal: Denies: abdominal pain, vomiting, diarrhea Genitourinary: Denies: urgency, dysuria Musculoskeletal: Denies: back pain, joint swelling Integumentary: Denies: rash Neurological: Reports: as per HPI, confusion. Denies: headache, weakness, numbness, paresthesias, abnormal gait, vertigo Psychiatric: Denies: anxiety, depression Endocrine: Denies: fatigue Hematological/Lymphatic: Denies: easy bleeding, easy bruising [facility] Medical History (Last Updated 09/30/16 @ 11:33 by JIGNESH Almeida) Afib (Chronic Medical) Arthritis (Chronic Medical) Hypertension (Chronic Medical) Leaky heart valve (Chronic Medical) Surgical History: *hernia repair. *bilat knee replacement. *appendectomy Family History: Family History (Last Updated 09/30/16 @ 11:34 by JIGNESH Almeida) Other Cancer - Social History Smoking status: Former smoker Substance use type: does not use Alcohol intake frequency: does not drink Physical Exam - Limitations Limitations: no limitations - General General appearance: alert, in no apparent distress - Normal Exams: Head:: Normocephalic without trauma Eyes:: Pupils are PERRLA w/ EOMI, No scleral icterus, irritation, or foreign bodies noted ENMT:: No facial trauma, nasal exudates, pharyngeal erythema, or exudates are noted Dental: No fractured, loose, or missing teeth noted Neck:: Full range of motion, without adenopathy, JVD, bruits or thyromegaly Chest/Respirations:: Clear all amor, with good airflow, and symmetry bilaterally Cardiovascular:: Regular rate and rhythm, without murmur or gallop, Pulses 2+ all extremities, capillary refill, <2 seconds all extremities Abdomen:: Bowel sounds positive, soft, non-tender, non-distended, no hepatosplenomegaly, masses or bruits noted Lymphatic:: No lymphadenopathy, or lymphedema noted Musculoskeletal:: No tenderness, or deformity noted, good range of motion, all extremities Integumentary:: No rashes, hives, or bruising noted, hair and nails, without abnormality Neurological:: Patient is alert, and oriented, cranial nerves, motor/sensory/ cerebellar, exams w/o gross deficits, to observation Psychiatric:: Patient exhibits, appropriate attention, emotion and affect Course Course Narrative: No neurologic deficit noted at any point during ER stay - Consultations Consultation #1: Patient with history of atrial fibrillation on Xarelto. 10 minute history of expressive aphasia, resolved before arrival here. Nnormal exam and CT head. Dr Gordon -- recommends admission for TIA with further workup. Explained to family and patient. Patient still wants to go home, but family helped convince him that he should stay. Dr Yoon to admit. Vital Signs Temperature 36.7 C 10/17/16 12:48 Pulse Rate 65 10/17/16 12:48 Respiratory Rate 16 10/17/16 12:48 Blood Pressure 130/75 10/17/16 12:48 Pulse Oximetry 95 10/17/16 12:48 Temperature 36.7 C 10/17/16 12:48 Pulse Rate 65 10/17/16 12:48 Respiratory Rate 16 10/17/16 12:48 Blood Pressure 130/75 10/17/16 12:48 Pulse Oximetry 95 10/17/16 12:48 Altered Mental Status - [facility] Narrative Medical decision making narrative: Patient does seem to have had a clear change in his neurologic status that is well described by family who was with him, yet has a normal Ct scan. This is most consistent with a TIA. As such he is at risk of having a bigger event and would benefit from further evaluation at this time. Pt was reluctant to stay for this, but with physician recommendation and family support of this, he decided to stay. - Medical Records Attestation: I reviewed the patient's medical records. - Lab Data Attestation: I reviewed the patient's lab results. Result diagrams: 10/18/16 04:04 10/18/16 04:04 Lab Results 10/17/16 10/17/1610/17/17 Range/Units 13:20 13:20 13:20 WBC 4.6 (4.5-11.0) T/MM3 RBC 4.67 (4.50-5.90) M/MM3 Hgb 14.7 (13.5-17.5) GM/DL Hct 44.6 (41-53) % MCV 95.5 (80-100) UM3 MCH 31.5 (26-34) UUG MCHC 33.0 (31-37) GM/DL RDW Std Deviation 45.4 (36.9-50.2) FL Plt Count 150 (130-400) T/MM3 MPV 10.2 (9.4-12.4) UM3 Immature Gran % (Auto) 0.0 (0.0-0.5) % Neut % (Auto) 61.1 (33-66) % Lymph % (Auto) 27.1 (23-45) % [place] % (Auto) 8.0 (0-9.0) % Eos % (Auto) 3.2 (0-4) % Baso % (Auto) 0.6 (0-2) % Neut # 2.8 (1.8-7.7) T/MM3 Lymph # 1.3 (1-4.8) T/MM3 [place] # 0.4 (0-0.8) T/MM3 Eos # 0.2 (0-0.5) T/MM3 Baso # 0.0 (0-0.2) T/MM3 Abs Immat Gran (auto) 0.00 (0.00-0.03) T/MM3 INR 2.07 H (0.99-1.21) Turbidity < 20 (0-20) Sodium 142 (134-144) MEQ/L Potassium 4.4 (3.6-5) MEQ/L Chloride 104 (98-107) MEQ/L Carbon Dioxide 27 (22-30) MEQ/L Anion Gap 11 (5-15) MEQ/L BUN 25.0 H (9-20) MG/DL Creatinine 1.6 H (0.8-1.5) MG/DL GFR Calculation 42 BUN/Creatinine Ratio 16 (6-26) RATIO Glucose 134 H (75-110) MG/DL Calculated Osmolality 279 (261-280) MOSM/KG Calcium 10.3 H (8.4-10.2) MG/DL Total Bilirubin 1.10 (0.20-1.30) MG/DL Icterus Index < 2 (0-7) AST 14 L (17-59) U/L ALT 31 (21-72) U/L Alkaline Phosphatase 48 (38-126) U/L Total Protein 7.0 (6.3-8.2) G/DL Albumin 4.1 (3.5-5.0) G/DL Globulin 2.9 (2.4-3.6) G/DL Albumin/Globulin Ratio 1.4 (1.1-2.2) RATIO Specimen Hemolysis < 15 (0-25) - Radiology Data Attestation: I reviewed the patient's radiology results. CT head -- no acute changes Critical Care Time Critical Care Time: No Disposition Clinical Impression: Expressive aphasia Altered mental status Qualifiers: Altered mental status type: unspecified Qualified Code(s): R41.82 - Altered mental status, unspecified TIA (transient ischemic attack) Qualifiers: Transient cerebral ischemia type: other Qualified Code(s): G45.8 - Other transient cerebral ischemic attacks and related syndromes Disposition: To [facility] Condition: Stable - Seen By: physician
[2016-10-17 16:38] VITALS: BMI 23.3
[2016-10-17] MEDS ORDERED: ONDANSETRON 4 MG/2 ML INJECTION IVP PRN (17:49)
[2016-10-17] MEDS ORDERED: ACETAMINOPHEN 325 MG TABLET PO PRN (17:49)
--- NOTE | 2016-10-17 17:59 | History & Physical Report ---
History of Present Illness Date: 10/17/16 Chief complaint: slurred speech HPI: Mr. Daley is a 76-year-old male who was in his usual state of health until this morning. 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 He had a single episode of diarrhea early in the morning but had maintained good intake of fluids throughout the morning. They elected to take a break and go to lunch because the patient felt weak and when he tried to give his son his order the words were jumbled and didn 't make any sense. The patient initially reported that he was confused but on further questioning he says he knew what he wanted to order but toward simply wouldn't come out. When he received his food had no difficulty swallowing and no difficulty handling food items. He was not aware of any weakness in his arms or legs and had no sensory changes. His son did not describe any facial asymmetry and his son described the patient's speech as "gibberish". Speech normalized after several minutes (10 at the most) and was fully normal on arrival in the emergency room. Patient denies any past episodes of similar difficulty and has had no prior TIAs or strokes. CT of the head was without acute pathology although generalized atrophy and small vessel ischemic changes reported. He is hospitalized now to monitor for neurological stability and further testing. Review of Systems Comprehensive ROS: completed and no additional positive findings except those as stated Review of systems: Isolated episode of diarrhea this morning without melena or rectal bleeding, minor chronic cough patient associates with increased dose lisinopril, chronic rhinorrhea, enlarged prostate causing a couple of episodes of nocturia nightly, chronic arthralgias primarily involving the shoulders and back. [facility]LY [facility] Patient Stated Medical History Atrial fibrillation, paroxysmal-Dr. Ashraf Aortic insufficiency Hypertension DJD Hyperlipidemia BPH Depression Surgical History: *hernia repair. *bilat knee replacement. *appendectomy Family History: Family History (Last Updated 09/30/16 @ 11:34 by Michaela Guerrero Joy) Other Cancer Father at age 85 of CHF, prior [place] Mother of stroke at 91 Brother of bladder cancer at 67 - Social History Smoking status: Former smoker Substance use type: does not use Alcohol intake frequency: holidays/special occasions only Social history: PCP-Dr. Reyna Cardiology-Dr. Ashraf Alternate decision maker-son Raymundo CODE STATUS-full code Medications Home Medications Medication Instructions Recorded Confirmed Type [place]-3 Fatty Acids/Fish Oil [Fish 2,000 mg PO BID #0 04/26/14 10/17/16 History Oil 1,000 mg Capsule] Rivaroxaban [Xarelto] 20 mg PO DAILY #0 04/26/14 10/17/16 History Cetirizine HCl [Zyrtec] 10 mg PO DAILY #0 07/18/15 10/17/16 History Metoprolol Tartrate 100 mg PO BIDWM #0 11/30/15 10/17/16 History Acetaminophen [Acetaminophen 8 1,300 mg PO BID PRN #0 05/11/16 10/17/16 History Hour] Cholecalciferol [Vit. D-3] 1,000 unit PO DAILY #0 05/11/16 10/17/16 History Lisinopril 10 mg PO BID #0 05/11/16 10/17/16 History Omeprazole [Omeprazole] 40 mg PO DAILY 10/17/16 10/17/16 History Allergies Allergy/AdvReac Type Severity Reaction Status Date / Time cephalexin [From Keflex] Allergy Intermediate Verified 10/17/16 13:26 Exam Vital Signs: Temperature 97.4 F 10/17/16 16:44 Pulse Rate 62 10/17/16 16:36 Respiratory Rate 14 10/17/16 16:36 Blood Pressure 166/96 H 10/17/16 16:36 Pulse Oximetry 97 10/17/16 16:36 EXAM: General-NAD, alert HEENT-PERRL, EOMI without nystagmus, conjugate gaze, conjunctiva clear, sclera anicteric facial structures symmetric, oropharynx clear, neck supple and without adenopathy Lungs-respirations nonlabored, good airflow, breath sounds clear; on room air Cardiac-regular rhythm, S1-S2, no murmur noted Abd-soft, nontender, without palpable mass, bowel sounds present Ext-without edema; digits are clubbed Skin-without rash, skin tear, or wounds MS-degenerative changes in the small joints of the hands, no active synovitis Neuro-cranial nerves 3-12 intact, sensation intact to light touch proximally/ distally 4 extremities and across all 3 distributions of the face, motor tone normal, no tremors, proximal/distal power 5/5, no drift. Speech fluent. Psych-calm, cooperative Height/Weight/BMI: Height 1.8 m Weight 75.7 kg Body Mass Index 23.3 Results - Labs CBC & Chem 7: 10/17/16 13:20 10/17/16 13:20 Labs: INR 2.07 Calcium 10.3, liver enzymes normal UA unremarkable Prior creatinine 1.3 in July 2015 - Imaging and Cardiology CT scan - head Status: image reviewed by me (generalized atrophy, small vessel ischemic changes , no acute intracranial pathology) Assessment and Plan (1) Expressive aphasia Current visit: Yes Status: Acute DVT Prophylaxis: Xarelto GI Prophylaxis: other (omeprazole) Resuscitation Status: Full Code Assessment and Plan: Impression: Expressive aphasia, transient Atrial fibrillation Chronic kidney disease, stage III Hypertension DJD Hyperlipidemia BPH Plan: Mr. Daley is hospitalized on observation basis to monitor neurological stability after transient episode of expressive aphasia without other associated neurological symptoms. Neurological exam is entirely normal at the time of admission. He has a history of paroxysmal atrial fibrillation, admission exam suggests sinus rhythm and EKG/telemetry are pending. He may be mildly dehydrated based on elevated creatinine compared to baseline and minor hypercalcemia. He describes single episode of diarrhea earlier today. Low- volume fluid replacement therapy will be continued and lisinopril held initially. Aspirin 81 mg daily initiated and atorvastatin will be initiated this evening, continue Xarelto, lipids to be obtained. Neuro checks to be monitored overnight. Permissive hypertension will be allowed. Carotid Dopplers have been ordered; echocardiogram was recently obtained as an outpatient and will not be repeated at this time. Case reviewed with Dr. Enriquez, CT head reviewed by myself, laboratory data reviewed, recent labs/available records reviewed. Sepsis Assessment - Evaluation Sepsis screening result: No Definite Risk Hospital Course Summary Disclaimer: The visit summary below is not to be considered part of the above Progress Note. Hospital Course: 10/17/16 18:22 Mr. Daley is hospitalized on observation basis to monitor neurological stability after transient episode of expressive aphasia without other associated neurological symptoms. Neurological exam is entirely normal at the time of admission. He has a history of paroxysmal atrial fibrillation, admission exam suggests sinus rhythm and EKG/telemetry are pending. He may be mildly dehydrated based on elevated creatinine compared to baseline and minor hypercalcemia. He describes single episode of diarrhea earlier today. Low- volume fluid replacement therapy will be continued and lisinopril held initially. Aspirin 81 mg daily initiated and atorvastatin will be initiated this evening, continue Xarelto; lipids to be obtained. Neuro checks to be monitored overnight. Permissive hypertension will be allowed. Carotid Dopplers have been ordered; echocardiogram was recently obtained as an outpatient and will not be repeated at this time.
[2016-10-17] MEDS: NS 1,000 ML IV SCH (18:14)
[2016-10-17] MEDS: ASPIRIN *EC* 81 MG TABLET PO SCH (18:15)
[2016-10-17] MEDS ORDERED: ATORVASTATIN 10 MG TABLET PO SCH (21:00)
[2016-10-18] MEDS: NS 1,000 ML IV SCH (04:16)
[2016-10-18] MEDS ORDERED: OMEPRAZOLE 20 MG CAPSULE PO SCH (06:30)
[2016-10-18 07:53] VITALS: RESP 16; TEMP 97.6; O2SAT 97
[2016-10-18] MEDS: ASPIRIN *EC* 81 MG TABLET PO SCH (08:40)
[2016-10-18] MEDS ORDERED: CETIRIZINE 10 MG TABLET PO SCH (09:00)
[2016-10-18] MEDS ORDERED: OMEGA-3 ACID ESTERS 1 GM CAPSULE PO SCH (09:00)
--- NOTE | 2016-10-18 09:57 | CT Scan Report ---
Indication: slurred speech x 5-10 minutes PROCEDURE: CT head/brain wo con: Encounter: Initial Comparison: None Technique: Axial CT images through the head were performed without contrast. Iterative Reconstruction dose reducing technique was utilized. FINDINGS: Oval extra-axial 3 x 1.3 cm lesion in the right frontal area seen on axial image #22 causing mild mass effect upon the underlying right frontal lobe. This has an attenuation value of 10 Hounsfield units and appears somewhat cystic. The ventricles are of normal size, shape, and contour for the patient's age. There are scattered areas of low attenuation in the white matter which most likely represent changes from chronic microvascular ischemia. The brainstem, cerebellum, and cerebral hemispheres otherwise have a normal morphology and CT attenuation. There is no evidence of midline displacement. No hemorrhage, signs of acute territorial stroke or edema is evident. The visualized portions of the skull base, midface, and calvarium demonstrate no abnormality. The paranasal sinuses are well aerated and free of significant disease. The tympanic and mastoid cavities appear normal. IMPRESSION: No acute intracranial abnormality or hemorrhage. Right frontal extra-axial lesion could represent an arachnoid cyst or possibly meningioma. Contrast enhanced brain MRI is suggested for further evaluation. There is a preliminary report by [employer]. .
[2016-10-18] MEDS: LISINOPRIL 10 MG TABLET PO SCH ×2 (10:25→10:42)
--- NOTE | 2016-10-18 11:00 | Ultrasound Report ---
Indication: TIA PROCEDURE: US carotid doppler BI: TECHNIQUE: Grayscale, color and duplex Doppler imaging was performed of the carotid systems bilaterally. Velocities in cm/sec - validated velocity measurements with angiographic measurements, velocity criteria are extrapolated from diameter data as defined by the Society of Radiologists in Ultrasound Consensus Conference Radiology 2003; 229;340-346. RIGHT: PSV ICA 95.5 EDV ICA 17.3 PSV CCA 80.8 EDV CCA 7.1 PSV ECA 184 ICA Diameter reduction 10%-30% (1.0-1.2 PSV<110)% LEFT: PSV ICA 89.1 EDV ICA 16 PSV CCA 93.6 EDV CCA 12.2 PSV ECA 150 ICA Diameter reduction <20% (0.8-1.0)% The right vertebral artery is patent with cephalic flow. The left vertebral artery is patent with cephalic flow. Mild atherosclerotic plaque in the carotid bulbs and proximal ICAs. No focal velocity elevation. IMPRESSION: No hemodynamically significant carotid stenosis. There is a preliminary report by [employer]. .
--- NOTE | 2016-10-18 12:45 | Discharge Instructions ---
Discharge Plan - Med Rec/Dispo Referrals/Follow Up: Tal Reyna MD [Primary Care Provider] - 1 Week Paul Instructions: Transient Ischemic Attack (DC) Prescriptions: New Aspirin *EC* [Ecotrin] 81 mg PO DAILY tablet Atorvastatin [Lipitor] 10 mg PO HS #30 tab Continue Rivaroxaban [Xarelto] 20 mg PO 0800 #0 Lisinopril 10 mg PO BID #0 Cholecalciferol [Vit. D-3] 1,000 unit PO DAILY #0 Acetaminophen [Acetaminophen 8 Hour] 1,300 mg PO BID PRN #0 PRN Reason: PAIN Calcium Citrate with D Tablet 400 mg PO BID [place]-3 Fatty Acids/Fish Oil [Fish Oil 1,000 mg Capsule] 1,000 mg PO BID #0 Cetirizine HCl [Zyrtec] 10 mg PO DAILY #0 Metoprolol Tartrate 100 mg PO BIDWM #0 Omeprazole 40 mg PO DAILY Cholecalciferol (Vitamin D3) [Vitamin D3] 1 tab PO DAILY Discharge Instructions/Outpatient Orders: Final Provider Discharge Instructions Location: Determined By Patient - Disposition 01 Discharged Home, Self-Care
[2016-10-18 12:53] VITALS: BP 181/74; PULSE 51
--- NOTE | 2016-10-18 12:55 | Discharge Summary ---
Discharge Information Date of admission: 10/17/16 15:57 Anticipated date of discharge: 10/18/16 Attending Physician: Ce Yoon MD Primary care physician: Tal Reyna MD Consults: - Laboratory Labs: On 10/17/16 CBC was normal, INR 2.07, creatinine 1.6 with BUN 27, calcium 10.3, and liver enzymes normal. 10/18/16 04:04 10/18/16 04:04 Lipid studies pending at discharge. - Radiology Radiology: Noncontrast CT head on 10/17/16: Oval extra-axial 3 x 1.3 cm lesion in the right frontal area seen on axial image #22 causing mild mass effect upon the underlying right frontal lobe. This has an attenuation value of 10 Hounsfield units and appears somewhat cystic. The ventricles are of normal size, shape, and contour for the patient's age. There are scattered areas of low attenuation in the white matter which most likely represent changes from chronic microvascular ischemia. The brainstem, cerebellum, and cerebral hemispheres otherwise have a normal morphology and CT attenuation. There is no evidence of midline displacement. No hemorrhage, signs of acute territorial stroke or edema is evident. IMPRESSION: No acute intracranial abnormality or hemorrhage. Right frontal extra-axial lesion could represent an arachnoid cyst or possibly meningioma. Contrast enhanced brain MRI is suggested for further evaluation. Carotid Doppler on 10/17/16: Right internal carotid had 10-30% stenosis and left internal carotid had less than 20% stenosis, Mild atherosclerotic plaque in the carotid bulbs and proximal internal carotids , not hemodynamically significant. Vertebral arteries with cephalic flow. History of Present Illness HPI: Mr. Daley is a 76-year-old male who was in his usual state of health until this morning. 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 He had a single episode of diarrhea early in the morning but had maintained good intake of fluids throughout the morning. They elected to take a break and go to lunch because the patient felt weak and when he tried to give his son his order the words were jumbled and didn 't make any sense. The patient initially reported that he was confused but on further questioning he says he knew what he wanted to order but toward simply wouldn't come out. When he received his food had no difficulty swallowing and no difficulty handling food items. He was not aware of any weakness in his arms or legs and had no sensory changes. His son did not describe any facial asymmetry and his son described the patient's speech as "gibberish". Speech normalized after several minutes (10 at the most) and was fully normal on arrival in the emergency room. Patient denies any past episodes of similar difficulty and has had no prior TIAs or strokes. CT of the head was without acute pathology although generalized atrophy and small vessel ischemic changes reported. He is hospitalized now to monitor for neurological stability and further testing. Hospital Course This is a general summary of the patient's hospital course. For more details refer to the complete medical record. Hospital course: Mr. Daley was hospitalized on observation basis to monitor neurological stability after transient episode of expressive aphasia without other associated neurological symptoms. Neurological exam is entirely normal at the time of admission and remained unchanged through discharge. The patient was started on 81 mg of aspirin daily in conjunction with Xarelto. Carotid Dopplers were obtained demonstrating no significant carotid disease; echocardiogram was not repeated due to holiday weekend and patient report that it had been obtained as an outpatient recently. Given that he is already known to have paroxysmal atrial fibrillation and is already anticoagulated it is unlikely that an echo would alter current treatment. We will defer to Dr. Reyna as to whether patient should follow-up with Dr. Ashraf for additional testing. Fasting lipids were drawn 10/18 and are pending at discharge. Due to concern the patient had an acute cerebrovascular ischemic event a statin was initiated during the hospitalization and a prescription for Atorvastatin was provided to the patient at discharge. He indicated that his cholesterol has always been low and was reluctant to add additional medications. I recommended that he discuss his lipid status with Dr. Reyna on follow-up visit later this week when the results of lipids are known. Creatinine was modestly elevated on admission at 1.6 and low-volume IV fluids were administered overnight with improvement to 1.2 at the time of discharge. On 10/18 blood pressure was moderately elevated with systolic pressures of 180- 190 and lisinopril was resumed. The patient had no additional neurological symptoms during the period of observation and on 10/18 the patient had no symptoms or complaints. 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 Cardiac rhythm was regular with sinus rhythm/sinus bradycardia on telemetry and breath sounds are clear. Patient will resume all previously prescribed medications with addition of enteric-coated aspirin 81 mg daily and atorvastatin 10 mg daily. He is asked to follow-up with Dr. Reyna within 1 week for reassessment. Time spent with patient: discharge greater than 30 minutes Discharge Plan - Med Rec/Dispo Referrals/Follow Up: Tal Reyna MD [Primary Care Provider] - 1 Week [facility] Instructions: Transient Ischemic Attack (DC) Prescriptions: New Aspirin *EC* [Ecotrin] 81 mg PO DAILY tablet Atorvastatin [Lipitor] 10 mg PO HS #30 tab Continue Rivaroxaban [Xarelto] 20 mg PO 0800 #0 Lisinopril 10 mg PO BID #0 Cholecalciferol [Vit. D-3] 1,000 unit PO DAILY #0 Acetaminophen [Acetaminophen 8 Hour] 1,300 mg PO BID PRN #0 PRN Reason: PAIN Calcium Citrate with D Tablet 400 mg PO BID [place]-3 Fatty Acids/Fish Oil [Fish Oil 1,000 mg Capsule] 1,000 mg PO BID #0 Cetirizine HCl [Zyrtec] 10 mg PO DAILY #0 Metoprolol Tartrate 100 mg PO BIDWM #0 Omeprazole 40 mg PO DAILY Cholecalciferol (Vitamin D3) [Vitamin D3] 1 tab PO DAILY Discharge Instructions/Outpatient Orders: Final Provider Discharge Instructions Location: Determined By Patient - Disposition 01 Discharged Home, Self-Care
[2016-10-18] MEDS ORDERED: RIVAROXABAN 20 MG TABLET PO SCH (17:30)
== END 2016-10-18 13:15 | disposition home or self-care (01) ==
LOC: MED 12:44 → ED 12:44 → MED 16:32
PROVIDERS: ADMIT Internal Medicine; ATTEND Internal Medicine

== ENCOUNTER 2017-04-27 19:44 | Observation (INO) ==
[2017-04-27] MEDS ORDERED: SALINE FLUSH 10ml SYRINGE IVF PRN (20:14)
[2017-04-27] MEDS ORDERED: NS 1,000 ML IV ONE (20:49)
--- NOTE | 2017-04-27 20:51 | Emergency Department Report ---
Neuro HPI - General Chief Complaint: Neuro Symptoms/Deficit Stated Complaint: left arm feels like going to sleep,trouble grippin Time Seen by Provider: 04/27/17 19:51 Source: patient, family Mode of arrival: ambulatory Limitations: no limitations - History of Present Illness HPI Narrative: Since 9 AM, the patient has had 3-4 episodes of tingling numbness and weakness to the left upper extremity especially the hand. Patient has never had symptoms like this before, and currently he is completely symptom-free. Patient does have history of TIAs, seen last year for expressive aphasia that resolved on its own, with normal echo and Doppler studies at that time. Patient describes the sensation of paresthesia to the fingertips and hand, mild decreased sensation, and a feeling of decreased strength several times today while he's been trying to pick up attendant pieces of paper, drive, or handle tools. Currently the patient feels like these have completely resolved, and he has no complaints. - Related Data Home Medications: Home Medications Medication Instructions Recorded Confirmed Rivaroxaban [Xarelto] 20 mg PO DAILY #0 04/26/14 04/27/17 Cetirizine HCl [Zyrtec] 10 mg PO DAILY #0 07/18/15 04/27/17 Atorvastatin [Lipitor] 10 mg PO HS 02/10/17 04/27/17 Calcium Citrate/Vitamin D3 1 tab PO BID 02/10/17 04/27/17 [Calcium Citrate with D Tablet] Cholecalciferol (Vitamin D3) 1,000 unit PO DAILY 02/10/17 04/27/17 [Vitamin D3] Lisinopril [Prinivil] 10 mg PO BID 02/10/17 04/27/17 Metoprolol Tartrate [Lopressor] 100 mg PO BID 02/10/17 04/27/17 [place]-3/Dha/Epa/Fish Oil [Fish Oil 1,000 mg PO BID 02/10/17 04/27/17 1,000 mg Softgel] Omeprazole [Omeprazole] 40 mg PO DAILY 04/27/17 04/27/17 dilTIAZem HCl [Dilt-Xr] 120 mg PO DAILY 04/27/17 04/27/17 Previous Rx's Medication Instructions Recorded Aspirin *EC* [Ecotrin] 81 mg PO DAILY tab 10/18/16 Allergies/Adverse Reactions: Allergies Allergy/AdvReac Type Severity Reaction Status Date / Time cephalexin [From Keflex] Allergy Intermediate Rash Verified 04/27/17 19:31 Review of Systems All systems: reviewed and negative except as stated PFSH Patient Stated Medical History Cerebrovascular Accident Yes: TIA Cataracts Yes Cardiac Arrhythmia Yes: afib Hypertension Yes Valvular Heart Disease Yes Pneumonia Yes Hiatal Hernia Yes Clinic Medical History (Last Updated 10/22/16 @ 14:17 by JIGNESH Marlow) Afib (Chronic Medical) Arthritis (Chronic Medical) COPD, moderate (Chronic Medical) Depression (Chronic Medical) Hypercholesterolemia (Chronic Medical) Hypertension (Chronic Medical) LVH (left ventricular hypertrophy) (Chronic Medical) Leaky heart valve (Chronic Medical) Moderate aortic regurgitation (Chronic Medical) Right knee pain (Chronic Medical) Meniscal Injury Tendonitis of both shoulders (Chronic Medical) TIAs, expressive aphasia, 2017 Surgical History: *hernia repair. *bilat knee replacement 10/2008. * appendectomy(2014). meniscal tear, right knee - 2003. heart cath. negative -2004. prostate biopsy, negative - 2006. Cataract removed right eye -2011. B herniorrhaphy -1983 Family History: Family History (Last Updated 10/22/16 @ 14:25 by JIGNESH Marlow) Father , 85 Heart failure Mother , 91 Stroke Brother , 67 Bladder cancer Brother , 80 Emphysema lung Sister , 81 Hx of artificial heart valve replacement Other Cancer - Social History Smoking status: Former smoker Substance use type: does not use Alcohol intake frequency: does not drink Physical Exam - Limitations Limitations: no limitations - General General appearance: alert - Normal Exams: Head:: Normocephalic without trauma Eyes:: Pupils are PERRLA w/ EOMI, No scleral icterus, irritation, or foreign bodies noted ENMT:: No facial trauma, nasal exudates, pharyngeal erythema, or exudates are noted Neck:: Full range of motion, without adenopathy, JVD, bruits or thyromegaly Chest/Respirations:: Clear all amor, with good airflow, and symmetry bilaterally Cardiovascular:: Regular rate and rhythm, without murmur or gallop, Pulses 2+ all extremities, capillary refill, <2 seconds all extremities Abdomen:: Bowel sounds positive, soft, non-tender, non-distended, no hepatosplenomegaly, masses or bruits noted Lymphatic:: No lymphadenopathy, or lymphedema noted Musculoskeletal:: No tenderness, or deformity noted, good range of motion, all extremities Integumentary:: No rashes, hives, or bruising noted, hair and nails, without abnormality Neurological:: Patient is alert, and oriented, cranial nerves, motor/sensory/ cerebellar, exams w/o gross deficits, to observation Psychiatric:: Patient exhibits, appropriate attention, emotion and affect - Neurological Exam Neurological exam: Present: alert, oriented X3, CN II-XII intact, normal gait, motor sensory deficit, reflexes normal, other (patient has no motor or sensory deficits, cranial nerves II through XII are intact grossly, and patient has no focal or global deficits that his seen at this time.) Course Vital Signs Temperature 98.2 F 04/27/17 19:50 Pulse Rate 63 04/27/17 19:50 Respiratory Rate 16 04/27/17 19:50 Blood Pressure 128/59 04/27/17 19:50 Pulse Oximetry 95 04/27/17 19:50 Temperature 98.2 F 04/27/17 21:47 Pulse Rate 73 04/27/17 22:39 Respiratory Rate 12 04/27/17 22:39 Blood Pressure 167/81 H 04/27/17 22:39 Pulse Oximetry 98 04/27/17 22:39 Neuro Symptoms/Deficit - MDM Narrative Medical decision making narrative: CBC, CMP normal UA normal EKG shows no sinus rhythm without ischemia, ectopy, or infarction CT head without shows no acute findings. Patient does have several areas of small lacunar infarction, and in arachnoid cyst, that all are unchanged from last year studies. Case is discussed with Dr. Caceres, nighttime hospitalist, and Dr. Rosaline Landis neurologist. At this time due to the patient's recurrence of symptoms, with multiple recurrences of the same symptoms, to recommended that we get a CTA head /angiogram tonight. CTA head - "slight decrease in perfusion noted in the right mid posterior convexity with no corresponding branch occlusion identified. This potentially is a normal variant/long-standing finding; acute ischemia cannot be entirely excluded. No specific evidence of associated brain parenchymal changes. Consider diffusion weighted MR for further evaluation if clinically indicated." Recommended that the patient stay for further evaluation and probable MRI tomorrow, as well as evaluation by Dr. Fernanda Hernandez, and possibly discussion with Dr. Ashraf. Dr. Caceres is accepting for admit, observation - Lab Data Result diagrams: 04/27/17 20:53 04/27/17 20:53 Lab Results 04/27/17 04/27/17 04/27/17 Range/Units 20:53 20:53 20:53 WBC 4.8 (4.5-11.0) T/MM3 RBC 3.81 L (4.50-5.90) M/MM3 Hgb 12.0 L (13.5-17.5) GM/DL Hct 36.0 L (41-53) % MCV 94.5 (80-100) UM3 MCH 31.5 (26-34) UUG MCHC 33.3 (31-37) GM/DL RDW Std Deviation 45.1 (36.9-50.2) FL Plt Count 159 (130-400) T/MM3 MPV 10.3 (9.4-12.4) UM3 Immature Gran % (Auto) 0.0 (0.0-0.5) % Neut % (Auto) 52.3 (33-66) % Lymph % (Auto) 33.5 (23-45) % [place] % (Auto) 9.8 H (0-9.0) % Eos % (Auto) 3.8 (0-4) % Baso % (Auto) 0.6 (0-2) % Neut # (Auto) 2.5 (1.8-7.7) T/MM3 Lymph # (Auto) 1.6 (1-4.8) T/MM3 [place] # (Auto) 0.5 (0-0.8) T/MM3 Eos # (Auto) 0.2 (0-0.5) T/MM3 Baso # (Auto) 0.0 (0-0.2) T/MM3 Abs Immat Gran (auto) 0.00 (0.00-0.03) T/MM3 Turbidity < 20 (0-20) Sodium 143 (134-144) MEQ/L Potassium 3.9 (3.6-5) MEQ/L Chloride 107 (98-107) MEQ/L Carbon Dioxide 26 (22-30) MEQ/L Anion Gap 10 (5-15) MEQ/L BUN 37.0 H (9-20) MG/DL Creatinine 1.5 (0.8-1.5) mg/dL GFR Calculation 45 BUN/Creatinine Ratio 25 (6-26) RATIO Glucose 133 H (75-110) MG/DL Calculated Osmolality 286 H (261-280) MOSM/KG Calcium 9.3 (8.4-10.2) MG/DL Total Bilirubin 0.50 (0.20-1.30) MG/DL Conjugated Bilirubin 0.00 (0.00-0.30) mg/dL Unconjugated Bilirubin 0.20 (0.00-1.1) mg/dL Icterus Index < 2 (0-7) AST 14 L (17-59) U/L ALT 27 (21-72) U/L Alkaline Phosphatase 54 (38-126) U/L Troponin I 0.013 (0-0.12) ng/ml Total Protein 6.8 (6.3-8.2) g/dL Albumin 3.8 (3.5-5.0) g/dL Globulin 3.0 (2.4-3.6) G/DL Albumin/Globulin Ratio 1.3 (1.1-2.2) RATIO Specimen Hemolysis < 15 (0-25) Ur Collection Type Urine, void-cc/notcc Urine Color Yellow (YELLOW) Urine Clarity Clear Urine pH 5.5 (5.0-8.0) Ur Specific [place] 1.020 (1.015-1.025) Urine Protein Negative (NEGATIVE) Urine Glucose (UA) Negative (NEGATIVE) Urine Ketones Trace A (NEGATIVE) Urine Occult Blood Negative (NEGATIVE) Urine Nitrate Negative (NEGATIVE) Urine Bilirubin Negative (NEGATIVE) Urine Urobilinogen 0.2 (NORMAL) EU/DL Ur Leukocyte Esterase Negative (NEGATIVE) Urinalysis Comment Microscopic not ind. Disposition Clinical Impression: Upper extremity weakness Disposition: To OBS [facility] [place] Condition: Improved Prescriptions: No Action Rivaroxaban [Xarelto] 20 mg PO DAILY #0 Calcium Citrate/Vitamin D3 [Calcium Citrate with D Tablet] 1 tab PO BID Metoprolol Tartrate [Lopressor] 100 mg PO BID Lisinopril [Prinivil] 10 mg PO BID Atorvastatin [Lipitor] 10 mg PO HS [place]-3/Dha/Epa/Fish Oil [Fish Oil 1,000 mg Softgel] 1,000 mg PO BID Omeprazole [Omeprazole] 40 mg PO DAILY dilTIAZem HCl [Dilt-Xr] 120 mg PO DAILY Cetirizine HCl [Zyrtec] 10 mg PO DAILY #0 Aspirin *EC* [Ecotrin] 81 mg PO DAILY tab Cholecalciferol (Vitamin D3) [Vitamin D3] 1,000 unit PO DAILY Referrals: Tal Reyna MD [Family Provider] - - Seen By: physician
[2017-04-27] MEDS ORDERED: IOHEXOL 350mg/ml 75ml INJECTION ONE (21:59)
[2017-04-27] MEDS ORDERED: SALINE FLUSH 10ml SYRINGE ONE (22:00)
[2017-04-28] MEDS ORDERED: ACETAMINOPHEN 325 MG TABLET PO PRN (00:39)
[2017-04-28 00:51] VITALS: BMI 24.2
[2017-04-28 01:02] VITALS: RESP 16
--- NOTE | 2017-04-28 01:31 | History & Physical Report ---
History of Present Illness Date: 04/28/17 Chief complaint: left arm/hand numbness, tingling, weakness - intermittent symptoms HPI: Mr Daley is a 77 y/o w/ h/o Afib, TIA and HTN who presents to ED w/ cc of left hand/arm parasthesias and weakness that has been intermittent and brief in duration throughout the course of the day. Patient initially noted some left hand/arm weakness while working in his garage earlier in the day, states he was "dropping" tools periodically. He then noted some left director it weakness while driving his care - symptoms in each instance were relatively brief in duration and would "come and go". Patient denies trouble with speech, denies dysphagia, denies aphasia, gait ataxia and denies any other focal neuro symptoms. Patient states he currently does not have any symptoms at this time. Patient denies AYON, vision changes, change in hearing, dysphagia, facial weakness , lightheadedness, chest pain, SOA, dyspnea and denies n/v/d and f/c/s and denies change in bowel/bladder function. In ER patient had CT head which did not show any acute changes, and also ER physician spoke w/ Neurologist and he suggested CTA head which was done and " did not show any evidence of brain parenchymal changes but did show a slight decrease in the perfusion noted in the right mid posterior convexity with no corresponding branch occlusion identified. Possible normal variant however acute ischemia could not be entirely excluded." Patient to be admitted to the Hospitalist service for further evaluation and management. Currently he is asymptomatic. Review of Systems All systems PM: 10-point ROS was reviewed, no additional remarkable complaints except Past Medical History Patient Stated Medical History Cerebrovascular Accident Yes: TIA Cataracts Yes Cardiac Arrhythmia Yes: afib Hypertension Yes Valvular Heart Disease Yes Pneumonia Yes Hiatal Hernia Yes Clinic Medical History (Last Updated 10/22/16 @ 14:17 by JIGNESH Marlow) Afib (Chronic Medical) Arthritis (Chronic Medical) COPD, moderate (Chronic Medical) Depression (Chronic Medical) Hypercholesterolemia (Chronic Medical) Hypertension (Chronic Medical) LVH (left ventricular hypertrophy) (Chronic Medical) Leaky heart valve (Chronic Medical) Moderate aortic regurgitation (Chronic Medical) Right knee pain (Chronic Medical) Meniscal Injury Tendonitis of both shoulders (Chronic Medical) Surgical History: *hernia repair. *bilat knee replacement 10/2008. * appendectomy(2014). meniscal tear, right knee - 2003. heart cath. negative -2004. prostate biopsy, negative - 2006. Cataract removed right eye -2011. B herniorrhaphy -1983 Family History: Family History (Last Updated 10/22/16 @ 14:25 by Zeina Downs, [facility]) Father , 85 Heart failure Mother , 91 Stroke Brother , 67 Bladder cancer Brother , 80 Emphysema lung Sister , 81 Hx of artificial heart valve replacement Other Cancer Family History Updates: No specific family history updates - Social History Smoking status: Former smoker Medications Home Medications Medication Instructions Recorded Confirmed Type Rivaroxaban [Xarelto] 20 mg PO DAILY #0 04/26/14 04/27/17 History Cetirizine HCl [Zyrtec] 10 mg PO DAILY #0 07/18/15 04/27/17 History Aspirin *EC* [Ecotrin] 81 mg PO DAILY tab 10/18/16 04/27/17 Rx Atorvastatin [Lipitor] 10 mg PO HS 02/10/17 04/27/17 History Calcium Citrate/Vitamin D3 1 tab PO BID 02/10/17 04/27/17 History [Calcium Citrate with D Tablet] Cholecalciferol (Vitamin D3) 1,000 unit PO DAILY 02/10/17 04/27/17 History [Vitamin D3] Lisinopril [Prinivil] 10 mg PO BID 02/10/17 04/27/17 History Metoprolol Tartrate [Lopressor] 100 mg PO BID 02/10/17 04/27/17 History [place]-3/Dha/Epa/Fish Oil [Fish Oil 1,000 mg PO BID 02/10/17 04/27/17 History 1,000 mg Softgel] Omeprazole [Omeprazole] 40 mg PO DAILY 04/27/17 04/27/17 History dilTIAZem HCl [Dilt-Xr] 120 mg PO DAILY 04/27/17 04/27/17 History Allergies Allergy/AdvReac Type Severity Reaction Status Date / Time cephalexin [From Keflex] Allergy Intermediate Rash Verified 04/27/17 19:31 Exam Vital Signs: Temperature 97.3 F 04/28/17 00:37 Pulse Rate 60 04/28/17 00:37 Respiratory Rate 16 04/28/17 00:37 Blood Pressure 158/68 H 04/28/17 00:37 Pulse Oximetry 98 04/28/17 00:37 Telemetry Rhythm: Sinus Rhythm Height/Weight/BMI: Height 1.8 m Weight 78.7 kg Body Mass Index 24.2 - Constitutional Present: no acute distress, well nourished, well developed - Routine HEENT Exam Head: Present: normocephalic, atraumatic Eye: Present: EOMI, PERRL ENT: Present: mucous membranes moist, nares patent - Routine Neck Exam Present: supple, full ROM. Absent: JVD - Routine Respiratory Exam Present: CTA bilaterally - Routine Cardiovascular Exam Present: RRR - Routine Abdominal Exam Present: soft, normoactive bowel sounds, non distended, non tender - Routine Extremities Exam Absent: cyanosis, clubbing, edema - Routine Skin Exam Present: intact, dry, warm - Routine Neurological Exam Present: alert, oriented X3, CN II-XII intact. Absent: sensory deficit, motor deficit - Routine Psychiatric Exam Present: normal affect, normal thought process, cooperative, good insight, good judgment Results - Labs CBC & Chem 7: 04/28/17 06:12 04/28/17 06:12 Assessment and Plan Assessment and Plan: Assessment: 1) Acute Left hand/arm weakness and parasthesias w/ decrease in director it strength - symptoms intermittent 2) Paroxysmal AFib on Xarelto 3) H/o TIA approx. one year ago - ASA and Lipitor added at that time 4) HTN 5) OA - large joints and neck 6) Mild COPD - smoked for 30 years - quit in 1986 Plan: Admit to Hospitalist service Consult Neurology Consider MRI brain, Carotid duplex US Continue home meds including Xarelto and ASA Telemetry Low Na, low fat diet Supportive care I have discussed the plan of care w/ the patient and the patient verbalized understanding DVT Prophylaxis: Xarelto Resuscitation Status: Full Code - Physician Narrative Physician: Saranya Gordon MD Narrative: Date: 04/28/17 10:50 AM -Dr. Gordon I have seen and examined the patient. I have reviewed the H&P above and agree. Please also see H&P dictated today by ELVIS Kent, with my additions. Hospital Course Summary Disclaimer: The visit summary below is not to be considered part of the above Progress Note.
[2017-04-28] MEDS ORDERED: OMEPRAZOLE 20 MG CAPSULE PO SCH (06:30)
[2017-04-28 07:50] VITALS: BP 148/71; TEMP 97.8; O2SAT 96
--- NOTE | 2017-04-28 07:59 | CT Scan Report ---
Indication: left arm weakness PROCEDURE: CT head/brain wo con: Encounter: Initial Comparison: Head CT dated October 17, 2016 Technique: Axial CT images through the head were performed without contrast. Iterative Reconstruction dose reducing technique was utilized. FINDINGS: Chronic right frontal probable arachnoid cyst. The ventricles are of normal size, shape, and contour for the patient's age. There are scattered areas of low attenuation in the white matter which most likely represent changes from chronic microvascular ischemia. The brainstem, cerebellum, and cerebral hemispheres otherwise have a normal morphology and CT attenuation. There is no evidence of midline displacement. No hemorrhage, signs of acute territorial stroke or edema is evident. The visualized portions of the skull base, midface, and calvarium demonstrate no abnormality. The paranasal sinuses are well aerated and free of significant disease. The tympanic and mastoid cavities appear normal. IMPRESSION: No acute intracranial abnormality or hemorrhage. Stable head CT. There is a preliminary report by virtual radi[facility]. .
--- NOTE | 2017-04-28 08:05 | CT Scan Report ---
Indication: recurrent left hand weakness and numbness PROCEDURE: CT angio head/neck: Encounter: Initial Comparison: Head CT dated October 17, 2016 Technique: CTA: Angiographic phase axial images were acquired from the aortic arch through the entire head following intravenous contrast administration. Multiplanar 2-D reconstructions and maximum intensity projection images were produced for additional assessment. 3-D volume rendered images of the [place] were also produced by the technologist. Automated Exposure Control and Iterative Reconstruction dose reducing techniques were utilized. Contrast: Omnipaque 350 74 mL Findings: Findings: CTA head with intravenous contrast: The distal cervical, petrous, cavernous, and supraclinoid segments of the internal carotid arteries are widely patent without significant stenosis or other vascular abnormalities. The anterior, middle, and posterior cerebral arteries are also widely patent without significant stenosis or occlusion. No aneurysms, vascular malformations, flow-limiting stenoses, or other arterial abnormality are evident. The visualized portion of the dural sinuses and cortical veins are also well seen and show no definite stenosis or occlusion. CTA neck with intravenous contrast: The aortic arch, brachiocephalic artery, bilateral subclavian arteries, bilateral common carotid arteries, bilateral vertebral arteries, and bilateral internal carotid arteries are widely patent without significant stenosis or other vascular abnormality. The carotid bifurcations are widely patent without significant stenosis or occlusion. Impression: 1.CTA head: No aneurysms, vascular malformations, or flow limiting stenoses. 2. CTA neck: No flow limiting stenosis of the carotids by NASCET criteria. .
[2017-04-28 08:08] VITALS: PULSE 70
[2017-04-28] MEDS ORDERED: OMEGA-3 ACID ESTERS 1 GM CAPSULE PO SCH (09:00)
[2017-04-28] MEDS ORDERED: ASPIRIN *EC* 81 MG TABLET PO SCH (09:00)
[2017-04-28] MEDS ORDERED: LISINOPRIL 10 MG TABLET PO SCH (09:00)
[2017-04-28] MEDS ORDERED: CETIRIZINE 10 MG TABLET PO SCH (09:00)
[2017-04-28] MEDS ORDERED: CALCIUM CITRATE 315mg + VIT.D 250units TABLET PO SCH (09:00)
[2017-04-28] MEDS ORDERED: RIVAROXABAN 20 MG TABLET PO SCH (09:00)
--- NOTE | 2017-04-28 09:08 | History & Physical Report ---
History of Present Illness Date: 04/28/17 HPI: Mr Daley is a pleasant 77 yr old male who presented to [facility] for evaluation of left hand/arm parasthesias and weakness. These episodes had been intermittent and brief throughout yesterday 04/27. He noted that he would drop objects yesterday while working in the garage. Last evening he was driving to dinner and felt his left hand falling off the steering wheel as he was "loosing his charge coordinator". Given this concern he presented to the emergency room last evening Other workup was performed in the emergency room including labs and CT of the head. Overall, lab studies were unremarkable, troponin was negative. She scan of the brain did not reveal any acute intracranial abnormalities or hemorrhages. CTA of head and neck was also performed, revealing no acute aneurysms, vascular flow limitations or other vascular abnormalities. Twelve- lead EKG was performed showing normal sinus rhythm, although patient does have a known history of atrial fibrillation. Other medical comorbidities include hypertension, atrial insufficiency, hyperlipidemia, chronic anticoagulation. Patient is on Xarelto and has been under the cardiac care of Dr. Ashraf. Given his previous symptoms, accompanied with his comorbidities and risk patient was admitted observation status to the hospitalist services for further evaluation and treatment. Review of Systems All systems PM: 10-point ROS was reviewed, no additional remarkable complaints except Review of systems: During examination patient denies having any symptoms. Entire ROS is negative. 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 *bilat knee replacement 10/2008. * appendectomy(2014). meniscal tear, right knee - 2003. heart cath. negative -2004. prostate biopsy, negative - 2006. Cataract removed right eye -2011. B herniorrhaphy -1983 Family History Updates: Father- Heart failure. Mother- CVA. Brother- , 67- Bladder cancer. Brother -, 80-Emphysema lung. 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- Dr Ashraf Medications Home Medications Medication Instructions Recorded Confirmed Type Rivaroxaban [Xarelto] 20 mg PO DAILY #0 04/26/14 04/27/17 History Cetirizine HCl [Zyrtec] 10 mg PO DAILY #0 07/18/15 04/27/17 History Aspirin *EC* [Ecotrin] 81 mg PO DAILY tab 10/18/16 04/27/17 Rx Atorvastatin [Lipitor] 10 mg PO HS 02/10/17 04/27/17 History Calcium Citrate/Vitamin D3 1 tab PO BID 02/10/17 04/27/17 History [Calcium Citrate with D Tablet] Cholecalciferol (Vitamin D3) 1,000 unit PO DAILY 02/10/17 04/27/17 History [Vitamin D3] Lisinopril [Prinivil] 10 mg PO BID 02/10/17 04/27/17 History Metoprolol Tartrate [Lopressor] 100 mg PO BID 02/10/17 04/27/17 History [place]-3/Dha/Epa/Fish Oil [Fish Oil 1,000 mg PO BID 02/10/17 04/27/17 History 1,000 mg Softgel] Omeprazole [Omeprazole] 40 mg PO DAILY 04/27/17 04/27/17 History dilTIAZem HCl [Dilt-Xr] 120 mg PO DAILY 04/27/17 04/27/17 History Allergies Allergy/AdvReac Type Severity Reaction Status Date / Time cephalexin [From Keflex] Allergy Intermediate Rash Verified 04/27/17 19:31 Exam Vital Signs: Temperature 97.8 F 04/28/17 07:49 Pulse Rate 70 04/28/17 08:08 Respiratory Rate 16 04/28/17 07:49 Blood Pressure 148/71 H 04/28/17 07:49 Pulse Oximetry 96 04/28/17 07:49 Telemetry Rhythm: Sinus Rhythm Height/Weight/BMI: Height 1.8 m Weight 78.6 kg Body Mass Index 24.2 - Constitutional Present: no acute distress, well nourished, well developed - Routine HEENT Exam Eye: Present: EOMI ENT: Present: mucous membranes moist, dentition normal - Routine Neck Exam Present: full ROM - Routine Respiratory Exam Present: CTA bilaterally. Absent: wheezes - Routine Cardiovascular Exam Present: RRR, S1, S2, murmur - Routine Abdominal Exam Present: soft, normoactive bowel sounds, non distended. Absent: tenderness - Routine Extremities Exam Present: full ROM, pulses intact - Routine Back/Spine/Pelvis Exam Back/Spine: Present: full ROM - Routine Skin Exam Present: intact, dry, warm - Routine Neurological Exam Present: alert, oriented X3, CN II-XII intact, moving all extremities, vision grossly intact, hearing grossly intact, normal speech - Routine Psychiatric Exam Present: normal affect, cooperative, good insight, good judgment Results - Labs CBC & Chem 7: 04/28/17 06:12 04/28/17 06:12 Assessment and Plan Assessment and Plan: Impression Acute Left hand/arm weakness and paraesthesias - Resolved Paroxysmal AFib on Xarelto H/o TIA approx. one year ago - ASA and Lipitor added at that time Aortic insufficiency HTN OA - large joints and neck Mild COPD reported 30 yr hx of smoking Depression Plan Patient was admitted outpatient observation under care of hospitalist services for further evaluation. Patient is monitoring cardiac telemetry, remains normal sinus rhythm. Does have history of paroxysmal atrial fibrillation. Appreciate neurologic consultation by Dr. Waggoner Neurologically patient is back to his baseline without deficits. He is on maximum theapry including aspirin, Xarelto, atorvastatin Will speak with Dr. Ashraf, patient's missile facilities repairer for further guidance and recommendations. Will have PT/OT evaluate patient as he does reside at home independently and continues to drive Other routine medications continued Patient is a full Code. Will discuss further orders and plan of care with attending, Dr. Gordon At time of discharge medical care will return to primary care provider, Dr Reyna DVT Prophylaxis: Xarelto Resuscitation Status: Full Code - Time spent with patient Time with patient PN: 35 minutes - Physician Narrative Physician: Saranya Gordon MD Narrative: Date: 04/28/17 Time: 10:58 AM I reviewed this chart, the patient history, and the METAL SANDER AND FINISHER's/PA's documented findings as above. We discussed and formulated the assessment and plan as above with the additions below.-Dr. Gordon The patient was seen this morning in his room. He stated that he has had no further numbness or weakness in his left hand. He denied noticing any other neurologic symptoms yesterday. He denies any numbness or weakness in the left hand today. He states he feels back to normal. He never had a headache, chest pain, lightheadedness, palpitations or shortness of breath. He never noticed any vision changes, speech difficulties or swallowing issues. He did not notice any difficulties with confusion or difficulties with ambulation. He states he has been up this morning walking to the bathroom without any difficulties. He states he has not missed any doses of his medications. On exam he is alert and oriented and in no acute distress. HEENT reveals pupils to be equal, sclerae are anicteric, oropharynx is moist. Neck is supple. Chest is clear to auscultation. Cardiovascular reveals regular rate and rhythm with a 2/6 systolic murmur. Abdomen is soft and nontender. Extremities are free of edema. Neurologic reveals no focal deficits in the face. Speech is fluent and without slurring. Motor strength is equal in the upper and lower extremities on my exam. CT head revealed no acute intracranial abnormality or hemorrhage. Stable head CT CTA head revealed no aneurysms, no vascular malformations or flow limiting stenosis. CTA neck showed no flow-limiting stenosis of the carotids Lipids revealed triglycerides 64, cholesterol 143, LDL 70, VLDL 12.6, HDL 60, cholesterol/HDL ratio 2.4 Impression Acute left hand/arm weakness and paresthesias-currently resolved Paroxysmal A. fib for which she has remained on Xarelto History of TIA 1 year ago for which she's been on aspirin and Lipitor since that time Aortic insufficiency Hypertension Plan PT OT eval has been ordered and is pending. Dr. Ashraf was called and notified of the patient's admission and current findings. He recommended follow-up with him as an outpatient and he would undergo echo as an outpatient at that time. Dr. Waggoner did see the patient and recommended continuing his current home medications. He recommended checking a lipid panel which was done and shows fairly good control of lipids. The patient did have mild increase in BUN and creatinine from his baseline which has resolved today. If the patient remains stable, will dismiss to home later today after PT OT eval Hospital Course Summary Disclaimer: The visit summary below is not to be considered part of the above Progress Note. Hospital Course: Impression Acute Left hand/arm weakness and paraesthesias - Resolved Paroxysmal AFib on Xarelto H/o TIA approx. one year ago - ASA and Lipitor added at that time Aortic insufficiency HTN OA - large joints and neck Mild COPD reported 30 yr hx of smoking Depression Plan Patient was admitted outpatient observation under care of hospitalist services for further evaluation. Patient is monitoring cardiac telemetry, remains normal sinus rhythm. Does have history of paroxysmal atrial fibrillation. Appreciate neurologic consultation by Dr. Waggoner Neurologically patient is back to his baseline without deficits. He is on maximum theapry including aspirin, Xarelto, atorvastatin Will speak with Dr. Ashraf, patient's missile facilities repairer for further guidance and recommendations. Will have PT/OT evaluate patient as he does reside at home independently and continues to drive Other routine medications continued Patient is a full Code. Will discuss further orders and plan of care with attending, Dr. Gordon At time of discharge medical care will return to primary care provider, Dr Reyna
--- NOTE | 2017-04-28 11:52 | Consultation ---
DATE OF CONSULTATION: 04/28/2017 REFERRING PHYSICIAN: Dr. Saranya Gordon PATIENT'S CHIEF COMPLAINT: Left arm weakness and numbness. HISTORY OF PRESENT ILLNESS The patient is a 77-year-old male with history of atrial fibrillation, stroke and hypertension. The patient had been taking Xarelto and aspirin for at least a year when he had a stroke causing him to have some mild dysarthria and speech problem. Those symptoms later improved and he became asymptomatic. The patient woke up yesterday feeling okay and later in the morning he had a sudden- onset left arm weakness and mild numbness causing him to have difficulty using his hand. His symptoms lasted for about an hour and improved gradually afterwards. Later in the day the patient had recurrence of the weakness and numbness in the left arm. He had no other facial weakness or numbness and no lower extremity involvement. The patient brought himself to the emergency room. He had a CT of the head that showed no acute findings including no bleeding. He also had a CT angiogram of his head and neck which showed no large vessel disease. The patient's symptoms improved and he has been asymptomatic since then. He has had no headache. His blood pressure has been in the 140-150/90 range. His lab work was unremarkable. The patient had been feeling better today. He has had no new symptoms since being admitted to the hospital. PHYSICAL EXAMINATION The patient was awake, alert, oriented x 3. Pupils were round, reactive and equal. Extraocular muscles were intact. Visual field was full. Speech was fluent. Facial motor and sensory examinations were normal. The motor examination in the upper extremities was 5/5 on the right and 4+ to 5-/5 on the left. There was some mild pronator drift and mild slow movement on the left compared to the right. His motor examination in the lower extremities was 5/5 bilaterally. The sensory examination was symmetrical for light touch and pinprick bilaterally. Deep tendon reflexes were 2/4. Plantar reflexes were in flexion bilaterally. Coordination for [id number] was slightly slower on the left compared to the right. ASSESSMENT Possible small vessel ischemic stroke causing the patient to have left upper extremity weakness and mild numbness. This has been improving for the past 24 hours. The patient has had normal CT and CTA of the brain. There is no real indication for having an MRI of the brain unless patient's symptoms keep progressing or there are changes in presentation. The patient denied having any chest pain or palpitation problem and his heart has been in sinus rhythm. PLAN 1. Continue Xarelto and aspirin for stroke prevention and atrial fibrillation. 2. Consult with Cardiology regarding having an echocardiogram to rule out any potential risk for clotting in the heart or any malfunctioning of the valves. 3. Provide good fluid intake. 4. Optimize treatment for hypertension and keep the blood pressure in the upper range of normal, maximize treatment for hyperlipidemia and keep the LDL around 70. MTDD
--- NOTE | 2017-04-28 13:24 | Discharge Summary ---
Discharge Information Date of admission: 04/28/17 00:13 Anticipated date of discharge: 04/28/17 Attending Physician: Saranya Gordon MD Primary care physician: Tal Reyna MD Consults: Dr. Waggoner TIA versus possible small vessel ischemic stroke Left upper extremity weakness and mild numbness which has resolved Paroxysmal atrial fibrillation Chronic anticoagulation with Xarelto for A. fib Moderate aortic regurg Hypertension Hyperlipidemia - Laboratory Labs: 04/28/17 06:12 04/28/17 06:12 Laboratory Tests 04/27/17 04/28/17 04/28/17 20:53 06:12 06:12 BUN 37.0 H 31.0 H Creatinine 1.5 1.2 D Magnesium 1.8 Troponin I 0.013 Triglycerides Cholesterol LDL Cholesterol, Calc VLDL Cholesterol HDL Cholesterol Cholesterol/HDL Ratio 04/28/17 04/28/17 06:12 06:12 BUN Creatinine Magnesium Troponin I < 0.012 Triglycerides 64 Cholesterol 143 LDL Cholesterol, Calc 70.2 VLDL Cholesterol 12.8 HDL Cholesterol 60 Cholesterol/HDL Ratio 2.4 - Radiology Radiology: Date of Exam: 04/27/17 Ordering Provider: Gabriel See MD Type of Exam(s): CT head/brain wo con Reason for Exam(s): left arm weakness Indication: left arm weakness PROCEDURE: CT head/brain wo con: Encounter: Initial Comparison: Head CT dated October 17, 2016 Technique: Axial CT images through the head were performed without contrast. Iterative Reconstruction dose reducing technique was utilized. FINDINGS: Chronic right frontal probable arachnoid cyst. The ventricles are of normal size, shape, and contour for the patient's age. There are scattered areas of low attenuation in the white matter which most likely represent changes from chronic microvascular ischemia. The brainstem, cerebellum, and cerebral hemispheres otherwise have a normal morphology and CT attenuation. There is no evidence of midline displacement. No hemorrhage, signs of acute territorial stroke or edema is evident. The visualized portions of the skull base, midface, and calvarium demonstrate no abnormality. The paranasal sinuses are well aerated and free of significant disease. The tympanic and mastoid cavities appear normal. IMPRESSION: No acute intracranial abnormality or hemorrhage. Stable head CT. Date of Exam: 04/27/17 Ordering Provider: Gabriel See MD Type of Exam(s): CT angio head/neck Reason for Exam(s): recurrent left hand weakness and numbness Indication: recurrent left hand weakness and numbness PROCEDURE: CT angio head/neck: Encounter: Initial Comparison: Head CT dated October 17, 2016 Technique: CTA: Angiographic phase axial images were acquired from the aortic arch through the entire head following intravenous contrast administration. Multiplanar 2-D reconstructions and maximum intensity projection images were produced for additional assessment. 3-D volume rendered images of the [place] of [place] were also produced by the technologist. Automated Exposure Control and Iterative Reconstruction dose reducing techniques were utilized. Contrast: Omnipaque 350 74 mL Findings: Findings: CTA head with intravenous contrast: The distal cervical, petrous, cavernous, and supraclinoid segments of the internal carotid arteries are widely patent without significant stenosis or other vascular abnormalities. The anterior, middle, and posterior cerebral arteries are also widely patent without significant stenosis or occlusion. No aneurysms, vascular malformations, flow-limiting stenoses, or other arterial abnormality are evident. The visualized portion of the dural sinuses and cortical veins are also well seen and show no definite stenosis or occlusion. CTA neck with intravenous contrast: The aortic arch, brachiocephalic artery, bilateral subclavian arteries, bilateral common carotid arteries, bilateral vertebral arteries, and bilateral internal carotid arteries are widely patent without significant stenosis or other vascular abnormality. The carotid bifurcations are widely patent without significant stenosis or occlusion. Impression: 1.CTA head: No aneurysms, vascular malformations, or flow limiting stenoses. 2. CTA neck: No flow limiting stenosis of the carotids by NASCET criteria. . History of Present Illness HPI: Mr Daley is a pleasant 77 yr old male who presented to [facility] for evaluation of left hand/arm parasthesias and weakness. These episodes had been intermittent and brief throughout yesterday 04/27. He noted that he would drop objects yesterday while working in the garage. Last evening he was driving to dinner and felt his left hand falling off the steering wheel as he was "loosing his slip feeder". Given this concern he presented to the emergency room last evening Other workup was performed in the emergency room including labs and CT of the head. Overall, lab studies were unremarkable, troponin was negative. She scan of the brain did not reveal any acute intracranial abnormalities or hemorrhages. CTA of head and neck was also performed, revealing no acute aneurysms, vascular flow limitations or other vascular abnormalities. Twelve- lead EKG was performed showing normal sinus rhythm, although patient does have a known history of atrial fibrillation. Other medical comorbidities include hypertension, atrial insufficiency, hyperlipidemia, chronic anticoagulation. Patient is on Xarelto and has been under the cardiac care of Dr. Ashraf. Given his previous symptoms, accompanied with his comorbidities and risk patient was admitted observation status to the hospitalist services for further evaluation and treatment. Objective Vital signs: Temperature 97.8 F 04/28/17 07:49 Pulse Rate 70 04/28/17 08:08 Respiratory Rate 16 04/28/17 07:49 Blood Pressure 148/71 H 04/28/17 07:49 Pulse Oximetry 96 04/28/17 07:49 Height/Weight/BMI: Height 1.8 m Weight 78.6 kg Body Mass Index 24.2 Hospital Course This is a general summary of the patient's hospital course. For more details refer to the complete medical record. Hospital course: Impression Acute Left hand/arm weakness and paraesthesias - Resolved Paroxysmal AFib on Xarelto H/o TIA approx. one year ago - ASA and Lipitor added at that time Aortic insufficiency HTN OA - large joints and neck Mild COPD reported 30 yr hx of smoking Depression Plan Patient was admitted outpatient observation under care of hospitalist services for further evaluation. Patient is monitoring cardiac telemetry, remains normal sinus rhythm. Does have history of paroxysmal atrial fibrillation. Appreciate neurologic consultation by Dr. Waggoner Neurologically patient is back to his baseline without deficits. He is on maximum theapry including aspirin, Xarelto, atorvastatin Will speak with Dr. 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 Will have PT/OT evaluate patient as he does reside at home independently and continues to drive Other routine medications continued Patient is a full Code. Will discuss further orders and plan of care with attending, Dr. Gordon At time of discharge medical care will return to primary care provider, Dr Reyna Hospital course- The patient has had no further feelings of left arm numbness or weakness. He feels back to normal. Dr. Waggoner did see the patient and thought he may have some subtle weakness in the left hand. The occupational therapist also saw the patient and thought he might have some subtle weakness in the left hand, but this could also be because he is right-handed. The patient himself feels back to normal and on my exam I not noticing any significant weakness. His gait was steady and he had no leg weakness. He is alert and oriented. Dr. Waggoner did not feel that an MRI was needed at this time. The patient is in sinus rhythm on telemetry. He is chronically anticoagulated with Xarelto for history of atrial fibrillation. The patient is also on aspirin and Lipitor for history of TIA approximately one year ago. Dr. Ashraf was notified of the patient's admission and current findings. He did recommend that the patient follow-up with him in the office and have an outpatient echocardiogram. The patient is feeling quite well and feels back to normal. He denies having any chest pain, shortness of breath, lightheadedness with this episode. He denies missing any doses of his medications. We'll dismiss the patient to home. I did recommend that he not drive for the next couple of days to make sure that he has no recurrence of symptoms. He is in agreement. He will follow-up with Dr. Ashraf for outpatient echocardiogram. He will follow- up with Dr. Tal Reyna in the next 1 week. There will be no changes at this time in the patient's home medications. The patient was notified to call 911 if he has TIA or strokelike symptoms. Resuscitation Status: Full Code Discharge Plan - Discharge Disposition Discharge Date: 04/28/17 Disposition: 01 Discharged Home, Self-Care *Condition: Improved Reason For Visit (Visit label in EMR): left arm/hand weakness/parathesias - Discharge Medications *Discharge Medications: Continue Rivaroxaban [Xarelto] 20 mg PO DAILY #0 Calcium Citrate/Vitamin D3 [Calcium Citrate with D Tablet] 1 tab PO BID Metoprolol Tartrate [Lopressor] 100 mg PO BID Lisinopril [Prinivil] 10 mg PO BID Atorvastatin [Lipitor] 10 mg PO HS [place]-3/Dha/Epa/Fish Oil [Fish Oil 1,000 mg Softgel] 1,000 mg PO BID Omeprazole 40 mg PO DAILY dilTIAZem HCl [Dilt-Xr] 120 mg PO DAILY Cetirizine HCl [Zyrtec] 10 mg PO DAILY #0 Aspirin *EC* [Ecotrin] 81 mg PO DAILY tab Cholecalciferol (Vitamin D3) [Vitamin D3] 1,000 unit PO DAILY - Discharge Packet/Instructions *Diet: Cardiac diet *Activity: Light activity. No driving for the next couple of days. *Pain Management/Treatment: Tylenol if needed for pain *Wound Care: Not applicable *Expected Signs/Symptoms: None *Notify Physician if: Call 911 if you have onset of strokelike symptoms *During Business Hours Contact: Call Dr. Reyna's office *After Business Hours Contact: Louis [phone] and have your doctor paged *Pending Lab/Results: No Pending Lab - Referrals/Follow Up *Referrals/Follow Up: Figueroa Ashraf MD [Physician] - (FOLLOW UP AFTER ECHO ON 05/13 AT 11:30.) - Patient Handouts Patient Handouts: Weakness (GEN) - Dismissal Complete Discharge Instructions are:: Complete Physician Narrative - Narrative Attestation Narrative: Date: 04/28/17 Time: 0713
[2017-04-28] MEDS ORDERED: ATORVASTATIN 10 MG TABLET PO SCH (21:00)
== END 2017-04-28 14:20 | disposition home or self-care (01) ==
LOC: ED 19:44 → MED 19:44 → SUATTDRO 04-28 00:13 → MED 04-28 00:45
PROVIDERS: ADMIT Hospitalist; ATTEND Internal Medicine